=== PATIENT | female | born 1960 | race Caucasian/White ===

== ENCOUNTER 2019-07-13 13:55 | Emergency (ER) | payer MEDICARE, SELFPAY ==
[2019-07-13 13:56] VITALS: BP 179/95; PULSE 97; RESP 18; TEMP 36.9; O2SAT 100; BMI 20.7
--- NOTE | 2019-07-13 14:10 | ED_ITS ---
HPI - Nausea/Vomiting/Diarrhea General: Chief complaint: Nausea/Vomiting/Diarrhea Stated complaint: n/v Time Seen by Provider: 07/13/19 14:10 History of Present Illness: HPI Narrative: Patient is a 59-year-old female who comes to the ED with nausea, vomiting and diarrhea. Patient states that 2 weeks ago the symptoms started 2 weeks ago. She went and saw her PCP last Sunday and she was given a shot of steroids and a shot of Phenergan and that did help with the nausea and vomiting. She states that today she felt very nauseous when she woke up and vomited today and also is having some diarrhea as well. Patient says she has had black tarry stools recently and that she was scheduled for a colonoscopy within the last 2 weeks but the doctor canceled. She has a family history of colon cancer. She does have a history of reflux and takes pantoprazole. Patient states she feels weak due to the nausea vomiting and diarrhea for the past 2 weeks. She denies any fevers or abdominal pain. Denies dysuria or hematuria. Patient states she has not ate or drink much due to the nausea and vomiting these past 2 weeks. Associated nausea: Yes Associated symtoms: Reports fatigue and nausea; Denies change in vision, chest pain, dysuria, headache(s) or palpitations Review of Systems Const: Reports: fatigue; Denies: fever or chills Eyes: Denies: change in vision or eye discomfort ENMT: Denies: throat pain, painful swallowing, nasal discharge or nasal congestion Card: Denies: chest pain, palpitations, edema, swelling of feet/ankles, shortness of breath on exertion or shortness of breath when lying down Resp: Denies: shortness of breath, productive cough or non-productive cough GI: Reports: nausea, vomiting, diarrhea and black tarry stool; Denies: abdominal pain, constipation or blood in stool : Denies: flank pain, painful urination or blood in urine Musc: Denies: neck pain, back pain or extremity swelling Skin/Breast: Denies: rash or new lesion Neuro: Denies: headache, numbness in extremities or weakness in extremities PFS ED PFSH: Medical History Depression Fibromyalgia Insomnia Surgical History H/O sinus surgery History of hip surgery left hip repair History of hysterectomy with BSO Status post colonoscopy Family History Family/Other Cancer son-colon cancer Father Cancer colon Other COPD (chronic obstructive pulmonary disease) Hypertension Denies family history of Anesthesia complication Bleeding disorder Social History Smoking and tobacco status: never smoked Second hand smoke exposure: No Smoking risk assessment/counseling performed?: No Alcohol intake: never Desire information about alcohol rehabilitation?: No Counseling given: No Desire information about substance/drug rehabilitation?: No Counseling given: No Caregiver/support person: No Lives independently: Yes Household members: spouse Marital status: History of recent travel: No Current gender identity: Female Physical Exam Const: COMMON NORMALS: oriented x3 HENMT: COMMON NORMALS: normocephalic HEAD & SCALP: normocephalic MOUTH: oral and palatal mucosa normal THROAT: posterior oropharynx normal and uvula midline Neck/C-Spine: COMMON NORMALS: supple GENERAL: Yes normal visual inspection Resp: COMMON NORMALS: normal respiratory effort, no retractions, no use of accessory muscles and clear to auscultation bilaterally AUSCULTATION: clear to auscultation bilaterally Cardio: COMMON NORMALS: regular rate, regular rhythm, S1 normal heart sound, S2 normal heart sound, no gallops, no clicks, no murmurs and peripheral pulses 2+ throughout RATE: regular rate RHYTHM: regular rhythm HEART SOUNDS: S1 normal and S2 normal PERIPHERAL PULSES: pulses 2+ throughout GI: COMMON NORMALS: normal to inspection, nondistended, normoactive bowel sounds, soft to palpation, non-tender and no masses PALPATION: Yes soft : COMMON NORMALS: Yes no CVA tenderness BLADDER/KIDNEY EXAM: Yes no CVA tenderness Back/Pelvis: COMMON NORMALS: no CVA tenderness Extremity: COMMON NORMALS: normal to inspection and normal capillary refill Neuro: COMMON NORMALS: oriented x3 and moves all extremities Skin: COMMON NORMALS: no rashes or lesions noted GENERAL SKIN EXAM: no rashes or lesions noted and dry skin Course ED course: Patient was treated with IV fluids and Zofran for her nausea vomiting. While on the unit patient symptoms were controlled and she did not vomit or have diarrhea at all while on the unit. Patient states she was feeling better after getting the IV fluids. I discussed with the patient all the findings of the labs and CT were normal. I told patient I will put her on nausea medication to take at home to help with nausea and vomiting. I encouraged her to drink plenty of fluids and she can take Tylenol or ibuprofen if she gets any fever pain. Vital Signs: Vital signs: Vital Signs Temperature 98.4 F 07/13/19 13:56 Pulse Rate 82 07/13/19 17:52 Respiratory Rate 17 07/13/19 17:52 Blood Pressure 173/91 07/13/19 17:52 Pulse Oximetry 97 07/13/19 17:52 MDM - Nausea/Vomiting/Diarrhea Lab Data: Attestation: I reviewed the patient's lab results. Labs: Lab Results 07/13/19 07/13/19 07/13/19 Range/Units 14:17 14:17 15:30 WBC 8.9 (4.0-10.0) 10^3/ uL RBC 4.79 (4.1-5.3) 10^6/u L Hgb 14.7 (11.5-15.3) g/dL Hct 44.6 (37.0-47.0) % MCV 93.1 (81-99) fL MCH 30.7 (28.0-34.0) pg MCHC 33.0 (30.0-36.0) g/dL RDW 12.3 (12.1-15.1) % Plt Count 442 H (130-400) 10^3/c mm MPV 10.0 (7.4-10.4) fL Neut % (Auto) 73.0 % Lymph % (Auto) 16.6 % Grundy % (Auto) 7.6 % Eos % (Auto) 1.6 % Baso % (Auto) 1.0 % Neut # (Auto) 6.5 (1.8-7.7) 10^3/u L Lymph # (Auto) 1.5 (0.8-4.8) 10^3/u L Grundy # (Auto) 0.7 (0.2-0.9) 10^3/u L Eos # (Auto) 0.1 (0.0-0.8) 10^3/u L Baso # (Auto) 0.1 (0.0-0.1) 10^3/u L Nucleated RBC % (a uto) 0 % Nucleated RBCs # 0.0 /100WBC Sodium 143 (136-145) mmol/L Potassium 3.7 (3.5-5.1) mmol/L Chloride 104 (98-107) mmol/L Carbon Dioxide 26 (22-29) mmol/L Anion Gap 16.7 (5-19) BUN 7 L (8-23) mg/dL Creatinine 0.9 (0.5-0.9) mg/dL GFR Calculation 63.7 L (90-130) mL/min Glucose 109 (65-115) mg/dL Calculated Osmolal ity 292 (285-295) mOsm/k g Calcium 10.1 (8.5-10.5) mg/dL Total Bilirubin 0.3 (0.15-1.2) mg/dL AST 23 (0-32) U/L ALT 15 (0-33) U/L Alkaline Phosphata se 89 (35-105) IU/L Total Protein 7.8 (6.6-8.7) g/dL Albumin 4.7 (3.5-5.2) g/dL Globulin 3.1 (1.3-4.6) g/dL Lipase 23 (13-60) U/L Urine Color Yellow (Yellow) Urine Appearance Clear (CLEAR) Urine pH 6 (5-7) Ur Specific Gravit y 1.010 (1.005-1.030) Urine Protein Neg (Negative) Urine Glucose (UA) Norm (Normal) Urine Ketones Negative (Negative) Urine Blood 2+ H (Negative) Urine Nitrate Negative (Negative) Urine Bilirubin Neg (NEGATIVE) Urine Urobilinogen Norm (Negative) mg/dL Ur Leukocyte Lauryn ase Negative (Negative) Urine RBC 0-4 H (0-2) /hpf Urine WBC None (0-5) /hpf Ur Squamous Epith Cells 5-10 H (0-5) Urine Bacteria Trace (NONE) Imaging Data^: CT Abd/Pel: Attestation: I personally reviewed and interpreted this imaging study as follows: Radiologist's impression: [address] [address] [address] Scan Report Signed Patient: Dina Gates [facility] [id number] : 1960 [id number] Age/Sex: 59 / F ADM Date: 07/13/19 Loc: ER Room/Bed: Attending Dr: Ordering Provider/Ordering MD: León Mansfield Date of Service: 07/13/19 Procedure(s): CT abdomen pelvis w con* [id number] Accession Number(s): [id number] Report Number: [id number] PROCEDURE INFORMATION: Exam: CT Abdomen And Pelvis With Contrast Exam date and time: 07/13/2019 3:37 PM Age: 59 years old Clinical indication: Nausea and vomiting; Additional info: Nausea/vomit/diarrhea TECHNIQUE: Imaging protocol: Computed tomography of the abdomen and pelvis with intravenous contrast. Total DLP: 525.82 mGy-cm Radiation optimization: All CT scans at this facility use at least one of these dose optimization techniques: automated exposure control; mA and/or kV adjustment per patient size (includes targeted exams where dose is matched to clinical indication); or iterative reconstruction. Contrast material: OMNI 300; Contrast volume: 95 ml; Contrast route: LT WRIST; COMPARISON: CR Hip 2-3v LEFT wwo Pelv* [id number] 12/19/2017 4:18 PM FINDINGS: Liver: Unremarkable.No mass. Gallbladder and bile ducts: Normal. No calcified stones. No ductal dilation. Pancreas: Normal. No ductal dilation. Spleen: Normal. No splenomegaly. Adrenals: Normal. No mass. Kidneys and ureters: Normal. No hydronephrosis. Stomach and bowel: Unremarkable. No obstruction. No mucosal thickening. There is a small scar upper pole left kidney. Appendix: No evidence of appendicitis. Intraperitoneal space: Unremarkable. No free air. No significant fluid collection. Vasculature: Unremarkable.No abdominal aortic aneurysm. Lymph nodes: Unremarkable.No enlarged lymph nodes. Bladder: Unremarkable as visualized. Reproductive: Unremarkable as visualized. Bones/joints: Unremarkable. No acute fracture. Postoperative changes in the left hip are noted. There is a vacuum disc with moderate to severe degenerative changes in the lower lumbar spine. Soft tissues: Unremarkable. There is an incidental small fat filled umbilical hernia. CT/CT abdomen pelvis w con* [id number] IMPRESSION: No acute findings. No bowel thickening or inflammatory changes. No obstructing calculi or hydronephrosis. Radiation Dose CTDIVOL = (mGy): DLP = 525.82 (mGy-cm) Dictated By: Rita Hall Signed By: Rita Hall Signed Date/Time: 07/13/191623 DD/ 22 Discharge Plan Discharge Patient Disposition: Home, Self-Care Clinical Impression: Nausea & vomiting Qualifiers: Vomiting type: unspecified Vomiting Intractability: non-intractable Qualified Code(s): R11.2 - Nausea with vomiting, unspecified Condition: Stable Prescriptions: New promethazine 12.5 mg tablet 12.5 mg PO TID PRN (Reason: nausea and vomiting) Qty: 20 RF: 0 No Action estradiol 2 mg tablet 2 mg PO DAILY RF: 0 gabapentin 300 mg capsule 300 mg PO QID RF: 0 meloxicam 15 mg tablet 15 mg PO DAILY RF: 0 zolpidem 10 mg tablet 10 mg PO BEDTIME PRN (Reason: Sleep) RF: 0 ibuprofen 800 mg tablet 800 mg PO TID PRN (Reason: Pain) RF: 0 tizanidine 4 mg tablet 4 mg PO TID PRN (Reason: Muscle Spasm) RF: 0 pantoprazole 40 mg tablet,delayed release (DR/EC) 40 mg PO DAILY RF: 0 desvenlafaxine succinate 100 mg tablet extended release 24 hr 100 mg PO DAILY RF: 0 hufcjviqbr-sjjddrhzxdlcf-xdnu 50-325-40 mg tablet 1 tab PO Q4H PRN (Reason: Migraine Headache) RF: 0 alprazolam 0.5 mg tablet 0.5 mg PO QID PRN (Reason: Anxiety) RF: 0 Discharge Orders: Discharge Order (Routine); Ordered 07/13/19 Ordered By: León Mansfield Referrals: Nam Lynch, [employer] [Primary Care Provider] - Discharge Diet: Advance as tolerated Discharge Activity: Increase activity as tolerated Patient Instructions: Acute Nausea and Vomiting (ED) Activity Restrictions/Additional Instructions: Follow-up with your PCP in 5 to 7 days for reevaluation. Take promethazine as prescribed to help with nausea and vomiting. Drink plenty of fluids and stay hydrated. You can also take sizz-rwd-qajoyfp ibuprofen or Tylenol as needed for any pain or fever. Return to the ED if symptoms worsen. Discharge Date/Time: 07/13/19 17:55 Coding Level of Care Code ED Physician Ophthalmologist for Chg Fwd Exam Comprehensive
[2019-07-13 14:27] LABS: Basophils # 0.1 10^3/uL (0.0-0.1); Eosinophils # 0.1 10^3/uL (0.0-0.8); Eosinophils % 1.6 %; Hematocrit 44.6 % (37.0-47.0); Hemoglobin 14.7 g/dL (11.5-15.3); Lymphocytes # 1.5 10^3/uL (0.8-4.8); Lymphocytes % 16.6 %; Mean Corpuscular Hemoglobin 30.7 pg (28.0-34.0); Mean Corpuscular Volume 93.1 fL (81-99); Monocytes # 0.7 10^3/uL (0.2-0.9); Monocytes % 7.6 %; Neutrophils # 6.5 10^3/uL (1.8-7.7); Nucleated Red Blood Cells % 0 %; Platelet Count 442 10^3/cmm (130-400); Red Blood Count 4.79 10^6/uL (4.1-5.3); Red Cell Distribution Width 12.3 % (12.1-15.1); White Blood Count 8.9 10^3/uL (4.0-10.0)
[2019-07-13] MEDS: sodium chloride 0.9% 1,000 ML 999 ML IV (14:27)
[2019-07-13 14:46] LABS: Alanine Aminotransferase 15 U/L (0-33); Albumin Level 4.7 g/dL (3.5-5.2); Alkaline Phosphatase 89 IU/L (35-105); Anion Gap 16.7 (5-19); Aspartate Amino Transferase 23 U/L (0-32); Blood Urea Nitrogen 7 mg/dL (8-23); Calcium 10.1 mg/dL (8.5-10.5); Carbon Dioxide 26 mmol/L (22-29); Chloride 104 mmol/L (98-107); Globulin 3.1 g/dL (1.3-4.6); Glomerular Filtration Rate 63.7 mL/min (90-130); Glucose 109 mg/dL (65-115); Lipase 23 U/L (13-60); Osmolality Calculated 292 mOsm/kg (285-295); Potassium 3.7 mmol/L (3.5-5.1); Sodium 143 mmol/L (136-145); Total Bilirubin 0.3 mg/dL (0.15-1.2); Total Protein 7.8 g/dL (6.6-8.7)
--- NOTE | 2019-07-13 14:48 | CTR_ITS ---
PROCEDURE INFORMATION: Exam: CT Abdomen And Pelvis With Contrast Exam date and time: 07/13/2019 3:37 PM Age: 59 years old Clinical indication: Nausea and vomiting; Additional info: Nausea/vomit/diarrhea TECHNIQUE: Imaging protocol: Computed tomography of the abdomen and pelvis with intravenous contrast. Total DLP: 525.82 mGy-cm Radiation optimization: All CT scans at this facility use at least one of these dose optimization techniques: automated exposure control; mA and/or kV adjustment per patient size (includes targeted exams where dose is matched to clinical indication); or iterative reconstruction. Contrast material: OMNI 300; Contrast volume: 95 ml; Contrast route: LT WRIST; COMPARISON: CR Hip 2-3v LEFT wwo Pelv* [id number] 12/19/2017 4:18 PM FINDINGS: Liver: Unremarkable.No mass. Gallbladder and bile ducts: Normal. No calcified stones. No ductal dilation. Pancreas: Normal. No ductal dilation. Spleen: Normal. No splenomegaly. Adrenals: Normal. No mass. Kidneys and ureters: Normal. No hydronephrosis. Stomach and bowel: Unremarkable. No obstruction. No mucosal thickening. There is a small scar upper pole left kidney. Appendix: No evidence of appendicitis. Intraperitoneal space: Unremarkable. No free air. No significant fluid collection. Vasculature: Unremarkable.No abdominal aortic aneurysm. Lymph nodes: Unremarkable.No enlarged lymph nodes. Bladder: Unremarkable as visualized. Reproductive: Unremarkable as visualized. Bones/joints: Unremarkable. No acute fracture. Postoperative changes in the left hip are noted. There is a vacuum disc with moderate to severe degenerative changes in the lower lumbar spine. Soft tissues: Unremarkable. There is an incidental small fat filled umbilical hernia. CT/CT abdomen pelvis w con* [id number] IMPRESSION: No acute findings. No bowel thickening or inflammatory changes. No obstructing calculi or hydronephrosis. Radiation Dose CTDIVOL = (mGy): DLP = 525.82 (mGy-cm)
[2019-07-13] MEDS: ketorolac 30 mg/mL INJ IVP (15:24)
[2019-07-13] MEDS: iohexol 300 mg/mL 100 mL Btl IV (15:57)
[2019-07-13 16:02] LABS: Bilirubin Urine Neg (NEGATIVE); Blood Urine 2+ (Negative); Glucose Urine UA Norm (Normal); Ketones Urine Negative (Negative); Leukocyte Esterase Urine Negative (Negative); Nitrate Urine Negative (Negative); Protein Urine Neg (Negative); Urine Appearance Clear (CLEAR); Urine Color Yellow (Yellow); Urobilinogen Urine Norm (Negative); pH Urine 6 (5-7)
[2019-07-13 16:09] LABS: Add Urine Culture? No; Bacteria Urine TRACE; RBC Urine 0-4 /hpf (0-2)
[2019-07-13 17:52] VITALS: BP 173/91; PULSE 82; RESP 17; O2SAT 97
== END 2019-07-13 17:55 | disposition home or self-care (01) ==
PROVIDERS: Emergency Provider Physician Assistant; Family Provider Nurse Practitioner; PCP Nurse Practitioner
DX: R11.2 Nausea with vomiting, unspecified (principal)
CPT/HCPCS: 12345; 36415; 74177; 80053; 81001; 83690; 85025; 87040; 96361; 96374; 96375; 99282; 99283; A9270; J1885; J7030; Q9967

== ENCOUNTER 2019-09-30 07:07 | Day surgery (SDC) | payer MEDICARE, SELFPAY ==
[2019-09-26 15:00] VITALS: BMI 19.8
[2019-09-30 07:20] VITALS: BP 117/79; PULSE 88; RESP 20; TEMP 36.8; O2SAT 95
[2019-09-30] MEDS: sodium chloride 0.9% 1,000 ML 30 ML IV (07:28)
--- NOTE | 2019-09-30 07:42 | W.PM.OPSFHP ---
Same Day Surgery H&P Indication for Procedure/HPI DATE OF PROCEDURE: September 30, 2019 CHIEF COMPLAINT/INDICATIONFOR SURGICAL PROCEDURE: Chronic constipation PREOP DIAGNOSIS: Screening colonoscopy PLANNED PROCEDRUE: Operation Date: 09/30/19 08:10 Proposed Procedures p [id number]/Z86.010(Not Applicable) - Sonny Craft MD Medications/Allergies* Home Medications Medication Instructions Recorded Confirmed Type estradiol 2 mg tablet 2 mg PO DAILY 06/12/19 09/30/19 History zolpidem 10 mg tablet 10 mg PO BEDTIME PRN 06/12/19 09/30/19 History alprazolam 0.5 mg PO QID PRN 07/07/19 09/30/19 History desvenlafaxine succinate 100 mg PO DAILY 07/07/19 09/30/19 History ibuprofen 800 mg PO TID PRN 07/07/19 09/26/19 History pantoprazole 40 mg PO DAILY 07/07/19 09/30/19 History Allergies/Adverse Reactions Allergy/AdvReac Type Severity Reaction Status Date / Time No Known Allergies Allergy Verified 09/26/19 14:57 Current Medications: Generic Name Dose Route Start Last Admin Trade Name Freq PRN Reason Stop Dose Admin Sodium Chloride 1,000 mls @ 30 mls/hr 09/30/19 07:30 09/30/19 07:28 Sodium Chloride 0.9% IV 30 mls/hr .Q24H TARA Administration Pertinent History/Comorbid Conditions* Medical History (Updated 07/21/19 @ 00:00 by ) Depression Fibromyalgia Insomnia Surgical History (Updated 06/16/19 @ 15:25 by Sonny Craft MD) H/O sinus surgery History of hip surgery left hip repair History of hysterectomy with BSO Status post colonoscopy Family History (Updated 06/16/19 @ 14:54 by Dayana Vital RN) COPD (chronic obstructive pulmonary disease) Cancer Family/Other son-colon cancer Father colon Hypertension Denies family history of Anesthesia complication Bleeding disorder Social History Smoking and tobacco status: never smoked Second hand smoke exposure: No Smoking risk assessment/counseling performed?: No Alcohol intake: never Desire information about alcohol rehabilitation?: No Counseling given: No Desire information about substance/drug rehabilitation?: No Counseling given: No Caregiver/support person: No Lives independently: Yes Household members: spouse Marital status: History of recent travel: No Current gender identity: Female Pertinent Exam Findings alert, oriented x 3 and regular rate & rhythm Recommendations Surgery/Procedure today Coding Level of Care Code Acute Metal Fabrication Supervisor for Isidro Nathan
--- NOTE | 2019-09-30 07:48 | ANES.PREANE2 ---
Pre-Anesthetic Assessment Pre-Anesthetic Assessment: Height/Weight: Height 1.73 m Weight 58.967 kg Temp Pulse Resp BP Pulse Ox 98.3 F 88 20 H 117/79 95 09/30/19 07:20 09/30/19 07:20 09/30/19 07:20 09/30/19 07:20 09/30/19 07:20 Preop Diagnosis: Screening colonoscopy Proposed Procedure: Operation Date: 09/30/19 08:10 Proposed Procedures p [id number]/Z86.010(Not Applicable) - Sonny Craft MD Last intake: Intake Last Liquid Date 09/29/19 Last Liquid Time 21:00 Last Solid Date 09/28/19 Last Solid Time 18:00 Social: Social History: No alcohol and No tobacco Exam: Pre-Anes Outpt Exam: alert, oriented x 3, clear to auscultation bilaterally and regular rate & rhythm Airway: Submandibular: WNL Cervical ROM: WNL MP: 2 Dentition: Other (poor) History/ROS: No significant history except as noted Pulmonary: Pulmonary: None reported CV/HEM: CV/HEM: None reported : : None reported Hepatic: Hepatic: None reported GI: GI: GERD (controlled) Metabolic: Metabolic: None reported Musc/skel: Musc/skel: None reported Neuropsych: Neuropsych: Anxiety and Depression Anesthetic Plan: ASA status: 2 Anesthesia: Anesthesia Evaluation and MAC Risk of > 500 ml blood loss (7ml/kg in children): No Meds/Allergies Current Medications: Current Medications Generic Name Dose Route Start Last Admin Trade Name Freq PRN Reason Stop Dose Admin Sodium Chloride 1,000 mls @ 30 ml s/hr 09/30/19 07:30 09/30/19 07:28 Sodium Chloride 0.9% IV 30 mls/hr .Q24H TARA Administration PFSH Anesthesia PFSH: Medical History Depression Fibromyalgia Insomnia Surgical History H/O sinus surgery History of hip surgery left hip repair History of hysterectomy with BSO Status post colonoscopy Family History Family/Other Cancer son-colon cancer Father Cancer colon Other COPD (chronic obstructive pulmonary disease) Hypertension Denies family history of Anesthesia complication Bleeding disorder Social History Smoking and tobacco status: never smoked Second hand smoke exposure: No Smoking risk assessment/counseling performed?: No Alcohol intake: never Desire information about alcohol rehabilitation?: No Counseling given: No Desire information about substance/drug rehabilitation?: No Counseling given: No Caregiver/support person: No Lives independently: Yes Household members: spouse Marital status: History of recent travel: No Current gender identity: Female Data Anesthesia Cardiac Studies: No Data to Display
[2019-09-30 08:32] VITALS: BP 108/71; PULSE 75; RESP 16; TEMP 36.6; O2SAT 99
--- NOTE | 2019-09-30 08:36 | ANE.PACU2 ---
Inpatient post-anesthesia follow up: Airway intact: Yes Vital signs: Temperature 98.3 F Pulse Rate 88 Respiratory Rate 20 Blood Pressure 117/79 Pulse Oximetry 95 Oxygen Delivery Me thod Room Air Oxygen Flow Rate Fraction of Inspir ed Oxygen Hydration adequate: Yes Nausea and vomiting: No Pain level: 2 Mental status: Baseline
== END 2019-09-30 09:00 | disposition home or self-care (01) ==
PROVIDERS: PCP Nurse Practitioner; Visit Provider Surgery
PROC: 0DJD8ZZ Inspection of Lower Intestinal Tract, Via Natural or Artificial Opening Endoscopic (ICD-10-PCS; CPT 45378; principal; 2019-09-30 08:00)
DX: K59.09 Other constipation (principal); Z86.010 Personal history of colon polyps; D12.8 Benign neoplasm of rectum; K21.9 Gastro-esophageal reflux disease without esophagitis; M79.7 Fibromyalgia
CPT/HCPCS: 12345; 45378; J7030

== ENCOUNTER 2019-10-17 14:48 | Outpatient (CLI) | payer MEDICARE, SELFPAY ==
--- NOTE | 2019-10-17 15:00 | MM_ITS ---
WS: [id number] BILATERAL DIGITAL SCREENING MAMMOGRAPHY WITH CAD CLINICAL INFORMATION: screen HISTORY: Screening mammogram. No current complaints. COMPARISON: August 20, 2017 TECHNIQUE: Bilateral CC and MLO views. FINDINGS: The breasts are composed of heterogeneous fibroglandular density tissue, which can limit the detectio n of small underlying mass lesions. No suspicious mass, asymmetry, calcifications, or architectural d istortion. No evidence of malignancy. MM/[place] [id number] IMPRESSION: BI-RADS: 1-Negative FOLLOW UP: 1 Year Follow-up Recommend return to annual screening mammography.
== END 2019-10-17 14:49 | disposition home or self-care (01) ==
PROVIDERS: PCP Nurse Practitioner; Visit Provider Nurse Practitioner
DX: Z12.31 Encounter for screening mammogram for malignant neoplasm of breast (principal)
CPT/HCPCS: 77067

== ENCOUNTER → 2020-02-09 14:01 | Outpatient (BNVA) | payer MEDICARE, SELFPAY | PROVIDERS: PCP Nurse Practitioner; Visit Provider Obstetrics & Gynecology | DX: N95.2 Postmenopausal atrophic vaginitis (principal) | CPT/HCPCS: 84450; 87070 ==

== ENCOUNTER → 2020-04-07 14:32 | Outpatient (BNVA) | payer MEDICARE, SELFPAY | PROVIDERS: PCP Nurse Practitioner; Visit Provider Nurse Practitioner Family | DX: Z20.828 Contact with and (suspected) exposure to other viral communicable diseases (principal); J06.9 Acute upper respiratory infection, unspecified | CPT/HCPCS: 87635 ==

== ENCOUNTER 2020-05-17 11:24 | Outpatient (CLI) | payer MEDICARE, SELFPAY ==
--- NOTE | 2020-05-17 11:48 | XR_ITS ---
WS: [id number] HIP WITH PELVIS LEFT TECHNIQUE: 3 views of the left hip with pelvis CLINICAL INFORMATION: LEFT HIP PAIN COMPARISON: December 17, 2017 FINDINGS: Screw fixation left hip is unchanged in appearance. Normal pubic rami. No evidence of screw loosening . XR/XR hip LT 2-3V wo/w pel* [id number] IMPRESSION: Stable postoperative changes screw fixation left hip. No evidence of loosening.
== END 2020-05-17 11:25 | disposition home or self-care (01) ==
PROVIDERS: PCP Nurse Practitioner; Visit Provider Nurse Practitioner Family
DX: M25.552 Pain in left hip (principal)
CPT/HCPCS: 73502

== ENCOUNTER 2020-07-06 11:19 | Outpatient (CLI) | payer MEDICARE, SELFPAY ==
--- NOTE | 2020-07-06 11:35 | XRR_ITS ---
PROCEDURE INFORMATION: Exam: XR Lumbosacral Spine Exam date and time: 07/06/2020 11:39 AM Age: 60 years old Clinical indication: Pain and injury or trauma; Fall; Blunt trauma (contusions or hematomas); Low back pain; Injury date: Couple of months ago; Patient HX: Back pain from hip to hip and proximal femur TECHNIQUE: Imaging protocol: XR of the lumbosacral spine. Views: 2 or 3 views. COMPARISON: CR Lumbar Spine 2-3 views* [id number] 07/18/2018 5:13 PM FINDINGS: Bones/joints: No fracture or other acute abnormalities are seen in the lumbar spine. Chronic degenerative changes are present especially in the lower lumbar facet joints with joint space narrowing sclerosis and hypertrophy. The disc spaces are not significantly narrowed. There is no significant malalignment. Soft tissues: Unremarkable. XR/XR lumbar spine 2-3V* [id number] IMPRESSION: Chronic degenerative changes predominantly in the lower lumbar facet joints.
--- NOTE | 2020-07-06 11:35 | XRR_ITS ---
PROCEDURE INFORMATION: Exam: XR Bilateral Hips Exam date and time: 07/06/2020 11:39 AM Age: 60 years old Clinical indication: Pain and injury or trauma; Blunt trauma (contusions or hematomas); Bilateral; Hip pain; Injury details: Fall a couple of months ago; Patient HX: Back pain from hip to hip and proximal femur; Additional info: Bilateral hip pain TECHNIQUE: Imaging protocol: XR bilateral hips. Views: 2 views of hips with pelvis when performed. COMPARISON: CR XR hip LT 2-3V wo/w pel* [id number] 05/17/2020 11:54 AM FINDINGS: Bones/joints: An orthopedic screws present in the left femoral neck and unchanged in position. No fracture or other acute bony abnormalities are seen. There is stable chronic sclerosis in the right femoral head and superior portion of the right acetabulum. Joint spaces are not significantly narrowed. Chronic degenerative changes are present in the lower lumbar spine with joint space narrowing and sclerosis. Soft tissues: Unremarkable. XR/XR hip BI 3-4V wo/w pel [id number] IMPRESSION: 1. Chronic degenerative changes. 2. No acute bone or joint abnormality.
== END 2020-07-06 11:20 | disposition home or self-care (01) ==
PROVIDERS: PCP Nurse Practitioner; Visit Provider Nurse Practitioner Family
DX: M25.551 Pain in right hip (principal); M25.552 Pain in left hip
CPT/HCPCS: 72100; 73522

== ENCOUNTER 2020-10-01 15:47 | Outpatient (CLI) | payer MEDICARE, SELFPAY ==
--- NOTE | 2020-10-01 16:01 | MR_ITS ---
WS: [id number] INDICATION: Left hip pain TECHNIQUE: MRI of the left femur without gadolinium enhancement. Coronal T1 STIR sagittal STIR sagitt al T1 and axial PD axial T2 FINDINGS: Prior postoperative changes cannulated screw fixation across the left femoral neck. No lebron a in the left femoral neck. Left femoral neck is normal in appearance. No edema. Normal femoral shaft . No acute fractures. Normal visualized soft tissues. Mild serpiginous T1 and T2 signal abnormality involving the RIGHT femoral head consistent with avascu lar necrosis. This is only included on the coronal imaging. Recommend correlation for right hip pain. This can be followed up with right hip MRI or CT. MR/MR lower leg LT wo con* [id number] IMPRESSION: 1. Prior postoperative changes cannulated screw fixation across the LEFT femor al neck. 2. No edema in the LEFT femoral neck and proximal femur. Normal bone marrow si gnal in the femoral shaft. 3. No abnormalities in the LEFT hip. 4. Small amount of serpiginous signal abnormality in the RIGHT femoral head co nsistent with avascular necrosis. Recommend correlation for RIGHT hip pain.
--- NOTE | 2020-10-01 16:45 | MR_ITS ---
WS: [id number] MRI LUMBAR SPINE NONCONTRAST TECHNIQUE: Sagittal T1, T2 and STIR imaging. Axial T1 and T2 imaging. CLINICAL INFORMATION: M54.5 - Low back pain COMPARISON: None. FINDINGS: Mild lumbar curve. No acute compression. No high-grade central canal stenosis. Disc space narrowing w orse L5-S1. L1-L2: Normal. L2-L3: Mild annular bulging. Mild facet arthropathy. Spinal canal and foramen are patent. L3-L4: Mild bulging with slight effacement of the ventral thecal sac. Small right foraminal protrusio n with mild right and no significant left foraminal narrowing. Mild facet arthropathy. L4-L5: Mild annular bulging with mild central canal stenosis. Slight impingement traversing left grea ter than right L5 nerve roots. Moderate facet arthropathy. Mild left and no significant right foramin al narrowing. Moderate facet arthropathy. L5-S1: Mild disc bulging with slight impingement traversing S1 nerve roots bilaterally. Moderate face t arthropathy. Mild bilateral foraminal narrowing. Moderate facet arthropathy. Visualized pelvic bony structures: Normal. Paravertebral soft tissues: Normal. MR/MR lumbar spine wo con* [id number] IMPRESSION: 1. Mild lumbar curve. No acute compression. No high-grade central canal stenos is. 2. Mild annular bulging L4-5 with mild central canal stenosis. Slight impingem ent traversing left greater than right L5 nerve roots. Mild left L4-5 foraminal narrowing. 3. Disc bulging L5-S1 impinges the traversing S1 nerve roots bilaterally. Mild bilateral L5-S1 foraminal narrowing. 4. Small right foraminal protrusion L3-4 slightly contacts the exiting right L 3 nerve root. 5. Moderate facet arthropathy L3-L5.
== END 2020-10-01 15:48 | disposition home or self-care (01) ==
LOC: RADSHAW 15:53
PROVIDERS: PCP Nurse Practitioner; Visit Provider Nurse Practitioner
DX: M79.605 Pain in left leg (principal); M25.552 Pain in left hip; M47.816 Spondylosis without myelopathy or radiculopathy, lumbar region; M51.26 Other intervertebral disc displacement, lumbar region; M51.27 Other intervertebral disc displacement, lumbosacral region; M48.061 Spinal stenosis, lumbar region without neurogenic claudication
CPT/HCPCS: 72148; 73718

== ENCOUNTER → 2020-10-14 14:22 | Outpatient (BNVA) | payer MEDICARE, SELFPAY | PROVIDERS: PCP Nurse Practitioner; Referring Provider Nurse Practitioner; Visit Provider Orthopaedic Surgery | DX: M54.5 Low back pain (principal); M79.605 Pain in left leg; M48.061 Spinal stenosis, lumbar region without neurogenic claudication | CPT/HCPCS: 72110 ==

== ENCOUNTER → 2020-10-19 10:05 | Outpatient (BNVA) | payer MEDICARE, SELFPAY | PROVIDERS: PCP Nurse Practitioner; Referring Provider Orthopaedic Surgery; Visit Provider Anesthesiology Pain Medicine | DX: G89.29 Other chronic pain (principal); M54.5 Low back pain; M79.605 Pain in left leg; M25.552 Pain in left hip; Z79.899 Other long term (current) drug therapy | CPT/HCPCS: 99204 ==

== ENCOUNTER → 2020-10-26 12:24 | Outpatient (BNVA) | payer MEDICARE, SELFPAY | PROVIDERS: PCP Nurse Practitioner; Visit Provider Anesthesiology Pain Medicine | DX: M54.16 Radiculopathy, lumbar region (principal); M79.605 Pain in left leg | CPT/HCPCS: 64483; 64484; J1100; J3490 ==

== ENCOUNTER → 2020-11-09 09:04 | Outpatient (BNVA) | payer MEDICARE, SELFPAY | PROVIDERS: PCP Nurse Practitioner; Visit Provider Anesthesiology Pain Medicine | DX: M47.816 Spondylosis without myelopathy or radiculopathy, lumbar region (principal); M51.16 Intervertebral disc disorders with radiculopathy, lumbar region; M25.552 Pain in left hip; M79.605 Pain in left leg | CPT/HCPCS: 99213; 99214 ==

== ENCOUNTER → 2020-11-22 12:48 | Outpatient (BNVA) | payer MEDICARE, SELFPAY | PROVIDERS: PCP Nurse Practitioner; Visit Provider Anesthesiology Pain Medicine | DX: M47.816 Spondylosis without myelopathy or radiculopathy, lumbar region (principal); M79.605 Pain in left leg | CPT/HCPCS: 64493; 64494; 64495; J3490 ==

== ENCOUNTER → 2020-12-22 09:11 | Outpatient (BNVA) | payer MEDICARE, SELFPAY | PROVIDERS: PCP Nurse Practitioner; Visit Provider Anesthesiology Pain Medicine | DX: M51.16 Intervertebral disc disorders with radiculopathy, lumbar region (principal); M47.816 Spondylosis without myelopathy or radiculopathy, lumbar region; M25.552 Pain in left hip; M79.605 Pain in left leg | CPT/HCPCS: 99213 ==

== ENCOUNTER → 2021-03-17 11:26 | Outpatient (BNVA) | payer MEDICARE, SELFPAY | PROVIDERS: PCP Nurse Practitioner; Visit Provider Anesthesiology Pain Medicine | DX: G89.29 Other chronic pain (principal); M47.816 Spondylosis without myelopathy or radiculopathy, lumbar region; M51.16 Intervertebral disc disorders with radiculopathy, lumbar region; M25.552 Pain in left hip; M79.605 Pain in left leg; M79.7 Fibromyalgia | CPT/HCPCS: 99214 ==

== ENCOUNTER → 2022-01-16 14:49 | Outpatient (BNVA) | payer MEDICARE, SELFPAY | PROVIDERS: PCP Nurse Practitioner; Visit Provider Nurse Practitioner | DX: R53.83 Other fatigue (principal); E55.9 Vitamin D deficiency, unspecified; F41.8 Other specified anxiety disorders; M79.7 Fibromyalgia | CPT/HCPCS: 80053; 80061; 82306; 82607; 84443; 85025 ==

== ENCOUNTER 2022-02-18 09:59 | Emergency (ER) | payer MEDICARE, SELFPAY ==
[2022-02-18] VITALS (7 sets, daily range): BP systolic 106–132; BP diastolic 61–76; PULSE 78–88; RESP 13–23; O2SAT 95–98; BMI 21.1
--- NOTE | 2022-02-18 10:07 | XRR_ITS ---
PROCEDURE INFORMATION: Exam: XR Chest Exam date and time: 02/18/2022 10:55 AM Age: 62 years old Clinical indication: Pain; Chest pressure; Additional info: Chest pain TECHNIQUE: Imaging protocol: Radiologic exam of the chest. Views: 1 view. COMPARISON: CR XR chest 1V [id number] 07/31/2018 12:16 PM FINDINGS: Lungs: No pulmonary vascular congestion, pulmonary edema or pneumonia. Pleural spaces: No pleural effusion or pneumothorax. Heart/Mediastinum: The cardiac silhouette is not enlarged. The mediastinal contours are normal. Bones/joints: No acute osseous abnormality. XR/XR chest 1V portable [id number] IMPRESSION: No acute finding.
--- NOTE | 2022-02-18 10:08 | ECG_ITS ---
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 Measurements Intervals [place] Rate: 87 P: 80 MS: 161 QRS: 77 QRSD: 106 T: 71 QT: 385 QTc: 464 Interpretive Statements SINUS RHYTHM Compared to ECG 07/31/2018 11:31:09 Sinus tachycardia no longer present Electronically Signed On 02-20-2022 23:03:06 CDT by Tracy Satnos M.D. [id number] f
--- NOTE | 2022-02-18 10:14 | ED_ITS ---
HPI - Chest Pain General: Chief Complaint: Chest Pain Stated Complaint: Chest Pain Time Seen by Provider: 02/18/22 10:07 Source: patient Mode of arrival: ambulatory History of Present Illness: 62-year-old female presents emergency room with complaint of chest and back pain. Is difficult to get a lot of history from her she mainly just complains of sudden onset of low back and coccygeal pain. No trauma no previous injury or surgery. Patient evidently had some chest pain yesterday EMS was called they evaluated her and the report was that her heart rate was in the 140s but she refused care and stated home. This morning she had the onset of back pain while at rest and then it began to be accompanied by chest pain. Her main complaint when I came in to see her was her back tailbone pain. She denies any diarrhea no fever sweats chills no vomiting. She has seen pain management in the past for chronic back pain. She also according to her old records is a history of fibromyalgia. Medication list reviewed. MD complaint: chest pain and other (Low back pain, coccygeal pain) Onset (ago): day(s) Timing of current episode: episodic Prior episodes: Yes Onset: during rest Pain location: left chest Pain radiation: back and jaw/teeth Severity: moderate Quality: sharp Relieving factors: nothing Exacerbating factors: nothing Associated symptoms: Reports palpitations; Deny abdominal pain, diaphoresis, dyspnea, fever(s), leg edema, nausea, sense of impending doom, syncope or vomiting Treatment prior to arrival: none Review of Systems Const: Denies: fever(s) or diaphoresis ENMT: Denies: throat pain, ear or mastoid pain, nasal discharge or nasal congestion Card: Reports: chest pain and palpitations; Denies: irregular heart rhythm, edema or syncope Resp: Denies: dyspnea GI: Denies: abdominal pain, nausea or vomiting : Denies: flank pain, difficulty voiding, dysuria, urinary frequency or urinary urgency Musc: Reports: back pain; Denies: extremity pain Skin/Breast: Denies: rash or pruritus PFS ED PFSH: Medical History Depression Fibromyalgia Insomnia Situational anxiety Surgical History H/O sinus surgery History of hip surgery left hip repair History of hysterectomy with BSO Status post colonoscopy (09/30/19) repeat 10 years Family History Family/Other Cancer son-colon cancer Father Cancer colon Other COPD (chronic obstructive pulmonary disease) Hypertension Social History Smoking and tobacco status: never smoked Second hand smoke exposure: No Smoking risk assessment/counseling performed?: No Alcohol intake: never Desire information about alcohol rehabilitation?: No Counseling given: No Desire information about substance/drug rehabilitation?: No Counseling given: No Adopted: No Caregiver/support person: No Lives independently: Yes Household members: spouse Housing: House Marital status: service: No Current occupational status: disabled History of recent travel: No Current gender identity: Female Physical Exam Const: COMMON NORMALS: no acute distress GENERAL APPEARANCE: cooperative and comfortable ORIENTATION/CONSCIOUSNESS: Yes awake, Yes oriented to person, Yes oriented to place and Yes oriented to time HENMT: COMMON NORMALS: normocephalic, atraumatic, hearing grossly normal bilaterally, external ears normal, EAC's normal, TM's normal bilaterally, Normal nasal mucous membranes and turbinates present, moist oral mucous membranes and oropharynx normal HEAD & SCALP: normocephalic and atraumatic NOSE: Normal nasal mucous membranes and turbinates present EXTERNAL EAR: Yes external ears normal EXTERNAL AUDITORY CANAL: EAC's normal TYMPANIC MEMBRANE: TM's normal bilaterally Eye: COMMON NORMALS: Equal, round and reactive pupils present, EOMs intact bilaterally, conjunctivae normal and no scleral icterus CONJUNCTIVA: Yes conjunctivae normal PUPIL: Yes Equal, round and reactive pupils present Neck/C-Spine: COMMON NORMALS: full ROM, no lymphadenopathy, supple and no JVD Lymph: LYMPHATIC: no lymphadenopathy noted and no lymphedema noted Resp: COMMON NORMALS: normal respiratory effort, No retractions, No use of accessory muscles and clear to auscultation bilaterally AUSCULTATION: clear to auscultation bilaterally Cardio: COMMON NORMALS: no JVD, regular rate, regular rhythm and No murmurs present (Cardio) RATE: regular rate RHYTHM: regular rhythm GI: COMMON NORMALS: Soft to palpation and No hepatosplenomegaly present AUSCULTATION: Yes normoactive bowel sounds PALPATION: Yes Soft to palpation, No Tenderness to palpation present (GI), No Guarding due to palpation present (GI) and Yes No hepatosplenomegaly present Extremity: COMMON NORMALS: normal to inspection, capillary refill normal, no clubbing, cyanosis or edema, no calf tenderness and no pedal edema Neuro: SENSORIUM/ORIENTATION: Yes oriented to person, Yes oriented to place and Yes oriented to time Skin: COMMON NORMALS: no rashes or lesions noted GENERAL SKIN EXAM: no rashes or lesions noted Course Vital Signs: Vital signs: Vital Signs Pulse Rate 78 02/18/22 12:00 Respiratory Rate 13 02/18/22 12:00 Blood Pressure 106/76 02/18/22 12:00 Pulse Oximetry 95 02/18/22 10:51 Oxygen Delivery Me thod 02/18/22 10:03 MDM - Chest Pain Medical Decision Making Labs imaging and EKG reviewed. No specific EKG changes cardiac enzymes unremarkable. Her pain is much better she has some chronic changes in her back which look to be old. She has had problems with fibromyalgia and lumbar radiculopathy in the past. We will discharge her home on steroids and set her up for an outpatient Lexiscan sestamibi stress test gave her diclofenac to use as well and ask her to take baby aspirin daily. Medical Records I reviewed the patient's medical records. Lab Data I reviewed the patient's lab results. : 02/18/22 10:29 02/18/22 10:29 Radiology Impressions Chest X-Ray 02/18/22 10:07 IMPRESSION: No acute finding. Lumbar Spine X-Ray 02/18/22 10:20 IMPRESSION: Multilevel degenerative changes. Sacrum and Coccyx X-Ray 02/18/22 10:20 IMPRESSION: No acute osseous abnormality. Laboratory Results WBC 10.3 10^3/uL (4.0-10.0) H 02/18/22 10: RBC 3.84 10^6/uL (4.1-5.3) L 02/18/22 10:29 Hgb 11.9 g/dL (11.5-15.3) 02/18/22 10: Hct 36.8 % (37.0-47.0) L 02/18/22 10: MCV 95.8 fl (81-99) 02/18/22 10: MCH 31.0 pg (28.0-34.0) 02/18/22 10: MCHC 32.3 g/dL (30.0-36.0) 02/18/22 10: RDW 12.7 % (12.1-15.1) 02/18/22 10: Plt Count 343 10^3/cmm (130-400) 02/18/22 10: MPV 10.1 fL (7.4-10.4) 02/18/22 10:29 Neut % (Auto) 72.1 % 02/18/22 10:29 Lymph % (Auto) 15.3 % 02/18/22 10:29 [place] % (Auto) 8.5 % 02/18/22 10:29 Eos % (Auto) 3.4 % 02/18/22 10:29 Baso % (Auto) 0.4 % 02/18/22 10: Neut # (Auto) 7.42 10^3/uL (1.8-7.7) 02/18/22 10:29 Lymph # (Auto) 1.6 10^3/uL (0.8-4.8) 02/18/22 10:29 [place] # (Auto) 0.9 10^3/uL (0.2-0.9) 02/18/22 10:29 Eos # (Auto) 0.4 10^3/uL (0.0-0.8) 02/18/22 10: Baso # (Auto) 0.0 10^3/uL (0.0-0.1) 02/18/22 10:29 Nucleated RBC % (auto) 0 % 02/18/22 10: Nucleated RBCs # 0.0 /100WBC 02/18/22 10:29 Sodium 136 mmol/L (136-145) 02/18/22 10:29 Potassium 3.5 mmol/L (3.5-5.1) 02/18/22 10: Chloride 98 mmol/L (98-107) 02/18/22 10: Carbon Dioxide 31 mmol/L (22-29) H 02/18/22 10:29 Anion Gap 10.5 (5-19) 02/18/22 10:29 BUN 10 mg/dL (8-23) 02/18/22 10:29 Creatinine 0.6 mg/dL (0.5-0.9) 02/18/22 10:29 GFR Calculation 100.6 mL/min (90-130) 02/18/22 10:29 Glucose 93 mg/dL (65-115) 02/18/22 10:29 Calculated Osmolality 281 mOsm/kg (285-295) L 02/18/22 10:29 Calcium 9.4 mg/dL (8.5-10.5) 02/18/22 10:29 Total Bilirubin 0.3 mg/dL (0.15-1.2) 02/18/22 10:29 AST 36 U/L (0-32) H 02/18/22 10:29 ALT 18 U/L (0-33) 02/18/22 10: Alkaline Phosphatase 114 U/L (35-105) H 02/18/22 10:29 Troponin T Baseline 6 ng/L (0-10) 02/18/22 10:29 Troponin T 120 Minute 6.00 ng/L (0-10) 02/18/22 12:19 Delta Troponin T 0 ABS# (0-10) 02/18/22 12:19 Total Protein 6.7 g/dL (6.6-8.7) 02/18/22 10:29 Albumin 3.4 g/dL (3.5-5.2) L 02/18/22 10:29 Globulin 3.3 g/dL (1.3-4.6) 02/18/22 10:29 Discharge Plan Discharge Patient Disposition: Home Clinical Impression: Lumbar disc disease with radiculopathy, Facet arthropathy, lumbar, Atypical chest pain Condition: Stable Prescriptions: New prednisone 20 mg tablet 20 mg PO TID Qty: 15 0RF Rx Instructions: 1 p.o. 3 times daily x3 days, 1 p.o. twice daily x2 days, 1 p.o. daily x2 days aspirin 81 mg tablet,delayed release (DR/EC) 81 mg PO DAILY Qty: 30 0RF diclofenac sodium 75 mg tablet,delayed release (DR/EC) 75 mg PO Q12H PRN (Reason: pain) Qty: 20 0RF No Action estradiol 1 mg tablet 1 mg PO .COMPLEX Qty: 45 12RF Rx Instructions: 1 mg PO Take 1.5 tablet daily to equal 1.5mg daily; estradiol [Yuvafem] 10 mcg tablet 10 mcg VAGINAL .COMPLEX Qty: 8 12RF Rx Instructions: 10 mcg vaginal twice weekly; hydroxyzine pamoate 25 mg capsule 25 mg PO BID PRN (Reason: anxiety) Qty: 60 2RF desvenlafaxine succinate 100 mg tablet extended release 24 hr 150 mg PO DAILY bupropion HCl [Wellbutrin XL] 300 mg tablet extended release 24 hr 300 mg PO QAM quetiapine [Seroquel] 50 mg tablet 100 mg PO .at bedtime tizanidine 4 mg tablet 4 mg PO BID PRN (Reason: Muscle Spasm) Qty: 60 5RF rosuvastatin [Crestor] 10 mg tablet 10 mg PO DAILY Qty: 90 1RF pantoprazole 40 mg tablet,delayed release (DR/EC) 40 mg PO DAILY gabapentin 300 mg capsule 300 mg PO QID PRN (Reason: Pain) Discharge Orders: Discharge ED (Routine); Ordered 02/18/22 Ordered By: Oniel Dias Referrals: Nam Lynch, OTR REFRIGERATED CDL TRUCK DRIVER-C [Primary Care Provider] - Discharge Diet: Usual diet Discharge Activity: Limit activity as instructed Patient Instructions: Opioid Safety, Pain Management Activity Restrictions/Additional Instructions: Avoid exertional activity. Case management make arrangements for an outpatient Lexiscan sestamibi stress test. Follow-up with your primary care doctor within the week. Coding Level of Care Code ED Sheet Metal Installer for Isidro Nathan
--- NOTE | 2022-02-18 10:20 | XRR_ITS ---
PROCEDURE INFORMATION: Exam: XR Lumbosacral Spine Exam date and time: 02/18/2022 10:55 AM Age: 62 years old Clinical indication: Low back pain TECHNIQUE: Imaging protocol: Radiologic exam of the lumbosacral spine. Views: 2 or 3 views. COMPARISON: CR XR lumbar spine min 4V [id number] 10/14/2020 2:32 PM FINDINGS: Bones/joints: The lumbar vertebral bodies maintain height and alignment. The facets align normally. Disc space narrowing and degeneration most prominent at L5-S1 where there is a vacuum disc. Multilevel facet arthropathy in the lower lumbar spine. No acute fracture is appreciated. Soft tissues: No acute soft tissue abnormality. XR/XR lumbar spine 2-3V* [id number] IMPRESSION: Multilevel degenerative changes.
--- NOTE | 2022-02-18 10:20 | XRR_ITS ---
PROCEDURE INFORMATION: Exam: XR Sacrum and Coccyx, 2 or More Views Exam date and time: 02/18/2022 10:55 AM Age: 62 years old Clinical indication: Pain in coccyx area TECHNIQUE: Imaging protocol: XR of the sacrum and coccyx, 2 or more views. COMPARISON: CR XR hip BI 3-4V wo/w pel [id number] 07/06/2020 11:41 AM FINDINGS: Bones/joints: No fracture when allowing for the anatomic variability of the coccyx. The sacral arcuate lines are intact. The sacroiliac joints are not diastatic. Soft tissues: No acute soft tissue abnormality. XR/XR sacrum coccyx min 2V [id number] IMPRESSION: No acute osseous abnormality.
[2022-02-18] MEDS: aspirin 81 mg Chew Tablet 324 MG PO (10:29)
[2022-02-18] MEDS: ondansetron 2 mg/ML SDV 2 mL 4 MG IVP (10:40)
[2022-02-18 10:44] LABS: Basophils % 0.4 %; Eosinophils # 0.4 10^3/uL (0.0-0.8); Eosinophils % 3.4 %; Hematocrit 36.8 % (37.0-47.0); Hemoglobin 11.9 g/dL (11.5-15.3); Lymphocytes # 1.6 10^3/uL (0.8-4.8); Lymphocytes % 15.3 %; Mean Corpuscular HGB Conc 32.3 g/dL (30.0-36.0); Mean Corpuscular Volume 95.8 fl (81-99); Mean Platelet Volume 10.1 fL (7.4-10.4); Monocytes # 0.9 10^3/uL (0.2-0.9); Monocytes % 8.5 %; Neutrophils # 7.42 10^3/uL (1.8-7.7); Neutrophils % 72.1 %; Nucleated Red Blood Cells % 0 %; Platelet Count 343 10^3/cmm (130-400); Red Blood Count 3.84 10^6/uL (4.1-5.3); Red Cell Distribution Width 12.7 % (12.1-15.1); White Blood Count 10.3 10^3/uL (4.0-10.0)
[2022-02-18] MEDS: morphine 4 mg/mL SDV 1 mL IVP (10:45)
[2022-02-18 11:21] LABS: Alanine Aminotransferase 18 U/L (0-33); Albumin Level 3.4 g/dL (3.5-5.2); Alkaline Phosphatase 114 U/L (35-105); Anion Gap 10.5 (5-19); Aspartate Amino Transferase 36 U/L (0-32); Blood Urea Nitrogen 10 mg/dL (8-23); Calcium 9.4 mg/dL (8.5-10.5); Carbon Dioxide 31 mmol/L (22-29); Chloride 98 mmol/L (98-107); Globulin 3.3 g/dL (1.3-4.6); Glomerular Filtration Rate 100.6 mL/min (90-130); Glucose 93 mg/dL (65-115); Osmolality Calculated 281 mOsm/kg (285-295); Potassium 3.5 mmol/L (3.5-5.1); Sodium 136 mmol/L (136-145); Total Bilirubin 0.3 mg/dL (0.15-1.2); Total Protein 6.7 g/dL (6.6-8.7)
[2022-02-18 11:22] LABS: Troponin(5th) Baseline 6 ng/L (0-10)
--- NOTE | 2022-02-18 11:51 | PC.NURSE ---
entered room to round on pt, pt currently sleeping.
--- NOTE | 2022-02-18 12:13 | ECG_ITS ---
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 Measurements Intervals [place] Rate: 75 P: 82 [place]: 166 QRS: 81 QRSD: 105 T: 71 QT: 403 QTc: 451 Interpretive Statements SINUS RHYTHM Compared to ECG 02/18/2022 10:13:26 No significant changes Electronically Signed On 02-20-2022 23:16:10 CDT by Tracy Santos M.D. [id number]
[2022-02-18 13:29] LABS: Troponin 5 2HR Delta 0 ABS# (0-10)
--- NOTE | 2022-02-20 15:12 | DCPLANNER ---
Addendum entered by Octavia Leggett 05/05/22 10:11: Patient had an outpatient stress test scheduled - patient did not attend appointment. Addendum entered by Octavia Leggett 03/23/22 05:42: Patient has a follow up appointment scheduled for Monday, April 25, 2022 at 10:45 for an outpatient stress test. Centralized scheduling will call patient with appointment information. Original Note: health safety and environment manager had message to schedule an outpatient stress test for patient. health safety and environment manager faxed signed order to centralized scheduling, who will call patient with appointment information.
== END 2022-02-18 14:03 | disposition home or self-care (01) ==
PROVIDERS: Emergency Provider Family Medicine; PCP Nurse Practitioner
DX: M54.16 Radiculopathy, lumbar region (principal); M47.896 Other spondylosis, lumbar region; R07.89 Other chest pain
CPT/HCPCS: 36415; 71045; 72100; 72220; 80053; 84484; 85025; 93005; 96374; 96375; 99285; J2270; J2405

== ENCOUNTER → 2022-07-14 15:15 | Outpatient (BNVA) | payer MEDICARE, SELFPAY | PROVIDERS: PCP Nurse Practitioner; Visit Provider Nurse Practitioner Family | DX: S52.021A Displaced fracture of olecranon process without intraarticular extension of right ulna, initial encounter for closed fracture (principal); X58.XXXA Exposure to other specified factors, initial encounter | CPT/HCPCS: 73080 ==

== ENCOUNTER 2023-01-27 02:19 | Inpatient (IN) | payer MEDICARE, MEDICAID, SELFPAY ==
[2023-01-27] VITALS (30 sets, daily range): BP systolic 91–145; BP diastolic 40–77; PULSE 70–90; RESP 14–20; TEMP 36.2–37.4; O2SAT 92–100; BMI 18.2
--- NOTE | 2023-01-27 02:20 | XRR_ITS ---
PROCEDURE INFORMATION: Exam: XR Chest Exam date and time: 01/27/2023 2:23 AM Age: 63 years old Clinical indication: Injury or trauma; Blunt trauma (contusions or hematomas); Injury date: 01/27; Injury details: Fall, RT hip FX TECHNIQUE: Imaging protocol: Radiologic exam of the chest. Views: 1 view. COMPARISON: CR XR chest 1V portable [id number] 02/18/2022 10:55 AM FINDINGS: Lungs: Unremarkable. No consolidation. Pleural spaces: Unremarkable. No pleural effusion. No pneumothorax. Heart/Mediastinum: Unremarkable. No cardiomegaly. Bones/joints: Unremarkable. XR/XR chest 1V portable [id number] IMPRESSION: No acute findings.
--- NOTE | 2023-01-27 02:24 | XRR_ITS ---
PROCEDURE INFORMATION: Exam: XR Right Hip Exam date and time: 01/27/2023 2:27 AM Age: 63 years old Clinical indication: Injury or trauma; Fall; Fracture of pelvis & hip; Right; Traumatic fracture; Articular head of femur; Displaced; Prior surgery; Surgery date: 6+ months; Surgery type: Lt hip TECHNIQUE: Imaging protocol: Radiologic exam of the right hip. Views: 1 view hip with pelvis when performed. COMPARISON: CR XR hip BI 3-4V wo/w pel [id number] 07/06/2020 11:41 AM FINDINGS: Bones/joints: Previous left hip pinning. Chronic right femoral head AVN. Mildly to moderately displaced right femoral neck fracture. This appears to be subcapital. No femoral head dislocation. Moderate right hip DJD. Soft tissues: Unremarkable. XR/XR hip RT 2-3V wo/w pel* [id number] IMPRESSION: Right hip acute surgical fracture.
--- NOTE | 2023-01-27 02:33 | W.ED.FALL ---
HPI - Fall General: Chief Complaint: Fall Stated Complaint: fall, hip/thigh pain Time Seen by Provider: 01/27/23 02:20 Source: patient and EMS Mode of arrival: EMS Limitations: no limitations History of Present Illness: 63-year-old female states that she had tripped and fell at home landed on her right hip she has right hip pain she rates an 8 out of 10 denies any other injuries denies hitting her head. She denies any chest or abdominal pain. Associated symptoms-after fall: Denies abdominal pain, chest pain, headache(s) or neck pain Review of Systems Const: Denies: fever(s) or chills ENMT: Denies: throat pain or dental pain Card: Denies: chest pain Resp: Denies: dyspnea GI: Denies: abdominal pain, nausea, vomiting or diarrhea Musc: Reports: extremity pain; Denies: neck pain or back pain Skin/Breast: Denies: rash Neuro: Denies: headache(s) PFSH ED PFSH: Medical History Depression Fibromyalgia Insomnia Situational anxiety Surgical History H/O sinus surgery History of hip surgery left hip repair History of hysterectomy with BSO Status post colonoscopy (09/30/19) repeat 10 years Family History Family/Other Cancer son-colon cancer Father Cancer colon Other COPD (chronic obstructive pulmonary disease) Hypertension Social History Smoking and tobacco status: never smoked Second hand smoke exposure: No Smoking risk assessment/counseling performed?: No Alcohol intake: never Desire information about alcohol rehabilitation?: No Counseling given: No Substance/Drug Use: never Desire information about substance/drug rehabilitation?: No Counseling given: No Adopted: No Caregiver/support person: No Lives independently: Yes Household members: spouse Housing: House Marital status: service: No Current occupational status: disabled Do you think of yourself as: Straight/Heterosexual Current gender identity: Female Course Vital Signs: Vital signs: Vital Signs Temperature 98.2 F 01/27/23 02:21 Pulse Rate 81 01/27/23 02:21 Respiratory Rate 16 01/27/23 02:38 Blood Pressure 123/62 01/27/23 02:21 Pulse Oximetry 100 01/27/23 02:38 MDM - Fall Medical Decision Making Patient presents here with right hip fracture from a fall spoke to hospital orthopedic and will admit. Medical Records I reviewed the patient's medical records. Lab Data I reviewed the patient's lab results. 01/27/23 02:37 01/27/23 02:37 Laboratory Results WBC 9.11 10^3/uL (3.29-11.43) 01/27/23 02:37 RBC 4.00 10^6/uL (3.85-5.65) 01/27/23 02:37 Hgb 11.80 g/dL (11.27-16.99) 01/27/23 02:37 Hct 37.1 % (36-47) 01/27/23 02:37 MCV 92.8 fl (85-98) 01/27/23 02:37 MCH 29.5 pg (27-33) 01/27/23 02:37 MCHC 31.8 g/dL (30-55) 01/27/23 02:37 RDW 13.1 % (12.1-15.1) 01/27/23 02:37 Plt Count 355 10^3/cmm (157-399) 01/27/23 02:37 MPV 9.5 fL (7.4-10.4) 01/27/23 02:37 Neut % (Auto) 65.6 % 01/27/23 02:37 Lymph % (Auto) 20.9 % 01/27/23 02:37 [place] % (Auto) 8.1 % 01/27/23 02:37 Eos % (Auto) 4.3 % 01/27/23 02:37 Baso % (Auto) 0.8 % 01/27/23 02:37 Neut # (Auto) 5.98 10^3/uL (1.8-7.7) 01/27/23 02:37 Lymph # (Auto) 1.9 10^3/uL (0.8-4.8) 01/27/23 02:37 [place] # (Auto) 0.7 10^3/uL (0.2-0.9) 01/27/23 02:37 Eos # (Auto) 0.4 10^3/uL (0.0-0.8) 01/27/23 02:37 Baso # (Auto) 0.1 10^3/uL (0.0-0.1) 01/27/23 02:37 Nucleated RBC % (auto) 0 % 01/27/23 02:37 Nucleated RBCs # 0.0 /100WBC 01/27/23 02:37 XR interpretation done by ED provider, pending radiology final review ED provider radiology interpretation(s): xr right hip: right hip fx Discharge Plan Discharge Condition: Stable Prescriptions: No Action estradiol 1 mg tablet 1 mg PO .COMPLEX Qty: 45 12RF Rx Instructions: 1 mg PO Take 1.5 tablet daily to equal 1.5mg daily; estradiol [Yuvafem] 10 mcg tablet 10 mcg VAGINAL .COMPLEX Qty: 8 12RF Rx Instructions: 10 mcg vaginal twice weekly; hydroxyzine pamoate 25 mg capsule 25 mg PO BID PRN (Reason: anxiety) Qty: 60 2RF desvenlafaxine succinate 100 mg tablet extended release 24 hr 150 mg PO DAILY bupropion HCl [Wellbutrin XL] 300 mg tablet extended release 24 hr 300 mg PO QAM quetiapine [Seroquel] 50 mg tablet 100 mg PO .at bedtime tizanidine 4 mg tablet 4 mg PO BID PRN (Reason: Muscle Spasm) Qty: 60 5RF rosuvastatin [Crestor] 10 mg tablet 10 mg PO DAILY Qty: 90 1RF [place] 145 mcg capsule 145 mcg PO QAM Qty: 30 0RF pantoprazole 40 mg tablet,delayed release (DR/EC) 40 mg PO DAILY gabapentin 300 mg capsule 300 mg PO QID PRN (Reason: Pain) aspirin 81 mg tablet,delayed release (DR/EC) 81 mg PO DAILY Qty: 30 0RF diclofenac sodium 75 mg tablet,delayed release (DR/EC) 75 mg PO Q12H PRN (Reason: pain) Qty: 20 0RF Coding Level of Care Code ED Hand Tool Lapper for Isidro Nathan
[2023-01-27] MEDS: ondansetron 2 mg/ML SDV 2 mL 4 MG IVP (02:37)
[2023-01-27] MEDS: HYDROmorphone 1 mg/mL INJ 1 mL IVP ×4 (02:38→13:46)
[2023-01-27 02:46] LABS: Basophils # 0.1 10^3/uL (0.0-0.1); Basophils % 0.8 %; Eosinophils # 0.4 10^3/uL (0.0-0.8); Eosinophils % 4.3 %; Hematocrit 37.1 % (36-47); Lymphocytes # 1.9 10^3/uL (0.8-4.8); Lymphocytes % 20.9 %; Mean Corpuscular HGB Conc 31.8 g/dL (30-55); Mean Corpuscular Hemoglobin 29.5 pg (27-33); Mean Corpuscular Volume 92.8 fl (85-98); Mean Platelet Volume 9.5 fL (7.4-10.4); Monocytes # 0.7 10^3/uL (0.2-0.9); Monocytes % 8.1 %; Neutrophils # 5.98 10^3/uL (1.8-7.7); Neutrophils % 65.6 %; Nucleated Red Blood Cells % 0 %; Platelet Count 355 10^3/cmm (157-399); Red Cell Distribution Width 13.1 % (12.1-15.1); White Blood Count 9.11 10^3/uL (3.29-11.43)
--- NOTE | 2023-01-27 02:55 | ECG_ITS ---
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 Measurements Intervals [place] Rate: 77 P: 76 [place]: 164 QRS: 84 QRSD: 114 T: 72 QT: 414 QTc: 471 Interpretive Statements SINUS RHYTHM MODERATE INTRAVENTRICULAR CONDUCTION DELAY [110+ ms QRS DURATION] Compared to ECG 02/18/2022 12:13:05 Intraventricular conduction delay now present Electronically Signed On 01-27-2023 9:37:02 CDT by Roman Mckoy M.D. [id number]
[2023-01-27 03:01] LABS: INR 0.91 (0.8-1.2)
[2023-01-27 03:09] LABS: Alanine Aminotransferase 10 U/L (0-33); Albumin Level 4.2 g/dL (3.5-5.2); Alkaline Phosphatase 130 U/L (35-105); Anion Gap 12.8 (5-19); Aspartate Amino Transferase 24 U/L (0-32); Blood Urea Nitrogen 10 mg/dL (8-23); Carbon Dioxide 31 mmol/L (22-29); Chloride 100 mmol/L (98-107); Globulin 2.7 g/dL (1.3-4.6); Glomerular Filtration Rate 55.6 mL/min (90-130); Glucose 103 mg/dL (65-115); Osmolality Calculated 289 mOsm/kg (285-295); Potassium 3.8 mmol/L (3.5-5.1); Sodium 140 mmol/L (136-145); Total Bilirubin 0.2 mg/dL (0.15-1.2); Total Protein 6.9 g/dL (6.6-8.7)
[2023-01-27] MEDS: HYDROmorphone 1 mg/mL INJ 1 mL 0.5 MG IVP (04:10)
[2023-01-27] MEDS: pantoprazole 40 mg SDV IVP (04:10)
[2023-01-27] MEDS: dextrose 5%-sod chloride 0.9% 1,000 ML 100 ML IV ×2 (04:10→17:21)
--- NOTE | 2023-01-27 04:11 | PM.HP ---
Providers/Chief Complaint Admitting Physician: Bladimir Gonzalez MD Primary Care Provider: Angie Mcgovern APN Chief Complaint: fall, hip/thigh pain History of Present Illness Dina Gates is a 63 year old female with a past medical history of anxiety, hyperlipidemia, insomnia, on chronic estrogen therapy, who presents to [facility] for a fall. Patient tells me that she wrapped up in her throw blanket, which she was was trying to unwrap herself, she fell out of bed, fell on her right hip, had severe right hip pain, no head trauma, no loss of consciousness, no preceding chest pain or palpitations or shortness of breath, emergency room she was diagnosed with a right hip fracture Review of Systems Const: Denies: fever(s) Card: Denies: chest pain Resp: Denies: dyspnea GI: Denies: abdominal pain : Denies: difficulty voiding or dysuria Musc: Reports: joint pain; Denies: back pain Neuro: Denies: headache(s) Medications/Allergies Home Medications Medication Instructions Recorded Confirmed Last Taken Type pantoprazole 40 mg tablet,delayed 40 mg PO DAILY 07/07/19 07/14/22 09/29/19 History release gabapentin 300 mg capsule 300 mg PO QID PRN Pain 09/30/19 07/14/22 Unknown History estradiol 10 mcg vaginal tablet 10 mcg vaginal .COMPLEX #8 tabs 02/09/20 07/14/22 Unknown Rx (Yuvafem) estradiol 1 mg tablet 1 mg PO .COMPLEX #45 tabs 03/29/20 07/14/22 Unknown Rx desvenlafaxine succinate 100 mg 150 mg PO DAILY 12/09/20 07/14/22 Unknown History tablet,extended release 24 hr hydroxyzine pamoate 25 mg capsule 25 mg PO BID PRN anxiety #60 caps 12/09/20 07/14/22 Unknown Rx bupropion HCl 300 mg 24 hr tablet, 300 mg PO QAM 01/16/22 07/14/22 Unknown History extended release (Wellbutrin XL) quetiapine 50 mg tablet (Seroquel) 100 mg PO .at bedtime 01/16/22 07/14/22 Unknown History tizanidine 4 mg tablet 4 mg PO BID PRN Muscle Spasm #60 01/16/22 07/14/22 Unknown Rx tabs rosuvastatin 10 mg tablet (Crestor) 10 mg PO DAILY #90 tabs 01/29/22 07/14/22 Unknown Rx aspirin 81 mg tablet,delayed 81 mg PO DAILY #30 tabs 02/18/22 07/14/22 Unknown Rx release diclofenac sodium 75 mg 75 mg PO Q12H PRN pain #20 tabs 02/18/22 07/14/22 Unknown Rx tablet,delayed release linaclotide 145 mcg capsule 145 mcg PO QAM #30 caps 04/27/22 07/14/22 Unknown Rx (Linzess) Allergies Allergy/AdvReac Type Severity Reaction Status Date / Time estrogens, conjugated Allergy rash Verified 02/28/22 20:50 [From Premarin] PFSH Acute PFSH: Medical History Depression Fibromyalgia Insomnia Situational anxiety Surgical History H/O sinus surgery History of hip surgery left hip repair History of hysterectomy with BSO Status post colonoscopy (09/30/19) repeat 10 years Family History Family/Other Cancer son-colon cancer Father Cancer colon Other COPD (chronic obstructive pulmonary disease) Hypertension Social History Smoking and tobacco status: never smoked Second hand smoke exposure: No Smoking risk assessment/counseling performed?: No Alcohol intake: never Desire information about alcohol rehabilitation?: No Counseling given: No Substance/Drug Use: never Desire information about substance/drug rehabilitation?: No Counseling given: No Adopted: No Caregiver/support person: No Lives independently: Yes Household members: spouse Housing: House Marital status: service: No Current occupational status: disabled Do you think of yourself as: Straight/Heterosexual Current gender identity: Female Vitals/I&O/Wt Last Vital Signs Temp 98.2 F 01/27/23 02:21 Pulse 87 01/27/23 03:26 Resp 16 01/27/23 04:10 BP 100/72 01/27/23 03:26 Pulse Ox 100 01/27/23 03:26 O2 Del Method Room Air 01/27/23 03:22 Weight last 48 hrs Weight 54.431 kg Physical Exam Const: COMMON NORMALS: no acute distress and patient oriented x3 HENMT: COMMON NORMALS: normocephalic HEAD & SCALP: normocephalic Eye: COMMON NORMALS: Equal, round and reactive pupils present Neck/C-Spine: COMMON NORMALS: full ROM and no lymphadenopathy Resp: COMMON NORMALS: normal respiratory effort, No retractions, No use of accessory muscles and clear to auscultation bilaterally AUSCULTATION: clear to auscultation bilaterally Cardio: COMMON NORMALS: regular rate, regular rhythm, S1 normal heart sound present and S2 normal heart sound present RATE: regular rate RHYTHM: regular rhythm HEART SOUNDS: S1 normal heart sound present and S2 normal heart sound present GI: COMMON NORMALS: Normal to inspection, nondistended, normoactive bowel sounds present, Soft to palpation and non-tender Back/Pelvis: OTHER: Severe right hip pain Extremity: COMMON NORMALS: no pedal edema Neuro: COMMON NORMALS: patient oriented x3, CN's II-XII intact bilaterally and moves all extremities Psych: COMMON NORMALS: mental status grossly normal Data 01/27/23 02:37 01/27/23 02:37 A&P Assessment and plan (1) Closed fracture of right hip: (2) Fall at home: (3) Hyperlipidemia, mixed: Plan Right hip fracture -Obtain UA -Creatinine 1.0 IV fluids -TSH -IV fluids -Dilaudid 1 mg IV push every 4 hours as needed for pain -Zofran for nausea -Orthopedic service has been consulted -Keep n.p.o. -Full code -SCDs for DVT prophylaxis Attestations Medical Necessity Statement*: Patient requires hospitalization, inpatient, greater than 2 midnights, for right hip fracture Diagnoses Closed fracture of right hip S72.001A Fall at home W19.XXXA; Y92.009 Hyperlipidemia, mixed E78.2
[2023-01-27 04:14] LABS: Thyroid Stimulating Hormone 6.62 uIU/mL (0.27-4.20)
--- NOTE | 2023-01-27 07:05 | PC.NURSE ---
patient taken off unit to surgery.
--- NOTE | 2023-01-27 07:19 | P.CONIM_ITS ---
Providers/Reason For Consult Consulting Physician/Specialty*: Orthopedics Reason for Consult*: Right hip pain Attending Physician: Vern Ayala MD Primary Care Provider: Angie Mcgovern APN History of Present Illness History of Present Illness Dina Gates is a 63 year old female who fell at her residence on her way to the bedroom. She was transported to the emergency room where x-rays confirmed a right hip fracture. She was admitted orthopedics was consulted for definitive management. She was evaluated in room 263 with continued right hip pain. She states that the pain has been sharp stabbing constant in nature any movement of the right leg makes her pain much worse. She denied any chest pain shortness of breath. She states she tripped and fell in the same spot where she sustained injury to her right elbow as well. She denies any neck or back pain denies any loss of conscious in the fall. Ranks the pain as 7 out of 10 on the pain scale rest gives her some temporary relief. Review of Systems Const: Denies: fever(s) Card: Denies: chest pain Resp: Denies: dyspnea GI: Denies: abdominal pain : Denies: difficulty voiding or dysuria Musc: Reports: joint pain; Denies: back pain Neuro: Denies: headache(s) Medications/Allergies Home Medications Medication Instructions Recorded Confirmed Last Taken Type gabapentin 300 mg capsule 300 mg PO QID PRN Pain 09/30/19 01/27/23 Unknown History estradiol 1 mg tablet 1 mg PO .COMPLEX #45 tabs 03/29/20 01/27/23 01/26/23 Rx desvenlafaxine succinate 100 mg 150 mg PO DAILY 12/09/20 01/27/23 01/26/23 History tablet,extended release 24 hr quetiapine 50 mg tablet (Seroquel) 100 mg PO .at bedtime 01/16/22 01/27/23 01/26/23 History diclofenac sodium 75 mg 75 mg PO Q12H PRN pain #20 tabs 02/18/22 01/27/23 01/26/23 Rx tablet,delayed release alprazolam 0.5 mg tablet 0.25 - 0.5 mg PO BID PRN Anxiety 01/27/23 01/27/23 01/26/23 History bupropion HCl 150 mg 24 hr tablet, 150 mg PO QAM 01/27/23 01/27/2301/26/23 History extended release eszopiclone 3 mg tablet 3 mg PO QPM 01/27/23 01/27/23 01/26/23 History levothyroxine 75 mcg tablet 75 mcg PO DAILY 01/27/23 01/27/23 01/26/23 History Allergies Allergy/AdvReac Type Severity Reaction Status Date / Time estrogens, conjugated Allergy rash Verified 02/28/22 20:50 [From Premarin] Current Medications Generic Name Dose Route Start Last Admin Trade Name Freq PRN Reason Stop Dose Admin Hydromorphone HCl 1 mg 01/27/23 03:30 01/27/23 03:43 Hydromorphone 1 Mg/Ml Inj 1 Ml IVP 1 mg Q4H PRN Administration PAIN Dextrose/Sodium Chloride 1,000 mls @ 100 mls/hr 01/27/23 03:45 01/27/23 04:10 Dextrose 5%-Sod Chloride 0.9% IV 100 mls/hr .Q10H TARA Administration Pantoprazole Sodium 40 mg 01/27/23 03:45 01/27/23 04:10 Pantoprazole 40 Mg Sdv IVP 40 mg Q24H TARA Administration PFSH Acute PFSH: Medical History Depression Fibromyalgia Insomnia Situational anxiety Surgical History H/O sinus surgery History of hip surgery left hip repair History of hysterectomy with BSO Status post colonoscopy (09/30/19) repeat 10 years Family History Family/Other Cancer son-colon cancer Father Cancer colon Other COPD (chronic obstructive pulmonary disease) Hypertension Social History Smoking and tobacco status: never smoked Second hand smoke exposure: No Smoking risk assessment/counseling performed?: No Alcohol intake: never Desire information about alcohol rehabilitation?: No Counseling given: No Substance/Drug Use: never Desire information about substance/drug rehabilitation?: No Counseling given: No Adopted: No Caregiver/support person: No Lives independently: Yes Household members: spouse Housing: House Marital status: service: No Current occupational status: disabled Do you think of yourself as: Straight/Heterosexual Current gender identity: Female Vitals/I&O/Wt Last Vital Signs Temp 99.3 F 01/27/23 07:08 Pulse 90 01/27/23 07:08 Resp 18 01/27/23 07:08 BP 145/77 01/27/23 07:08 Pulse Ox 92 01/27/23 07:08 O2 Del Method Room Air 01/27/23 04:23 Weight last 48 hrs Weight 120 lb Physical Exam Narrative: She is alert and orient x3 she has good general appearance normal mood and affe ct. Mild acute distress. Tender with palpation over the right hip with positive logroll. She wiggles her toes with normal sensation light touch down both lower extremities. She can dorsiflex and plantarflex. Her dorsalis pedis and posterior tibial pulses are palpable calves are supple. Good cap refill all digits HENMT: COMMON NORMALS: normocephalic and atraumatic HEAD & SCALP: normocephalic and atraumatic Resp: COMMON NORMALS: normal respiratory effort Cardio: COMMON NORMALS: regular rate and regular rhythm RATE: regular rate RHYTHM: regular rhythm GI: COMMON NORMALS: non-tender : COMMON NORMALS: Yes no CVA tenderness BLADDER/KIDNEY EXAM: Yes no CVA tenderness Back/Pelvis: COMMON NORMALS: no CVA tenderness Psych: COMMON NORMALS: cooperative Data 01/28/23 04:16 01/28/23 04:16 A&P Assessment and plan (1) Displaced fracture of right femoral neck: Discussed with the patient did proceed with a right hip hemiarthroplasty. Discussed the risks and benefits of the seizures could limited to bleeding infection nerve damage continued hip pain need for surgery asked anesthesia. Patient wished to proceed. More than 50% of the time spent with the patient today involved coordination of care, counseling and discussion of conservative versus surgical treatment options. Total amount of time spent with the patient was 32 minutes. Coding Level of Care Code Acute Code for Chg Fwd Diagnoses Displaced fracture of right femoral neck S72.001A Time Spent (min) 32
[2023-01-27] MEDS: sodium chloride 0.9% 1,000 ML 30 ML IV (07:30)
[2023-01-27] MEDS: ceFAZolin 2,000 MG in sodium chloride 0.9% (plus) 50 ML 100 MG IV ×2 (08:00→15:10)
--- NOTE | 2023-01-27 08:01 | W.PM.OPSUD ---
Surgery/Procedure H&P Update DATE OF PROCEDURE: January 27, 2023 DATE H&P PERFORMED: 01/27/23 H&P UPDATE INFORMATION: I have reviewed H&P completed within last 30 days, I have examined patient prior to procedure and No changes to prior documentation PREOP DIAGNOSIS: Right displaced femoral neck fracture PLANNED PROCEDURE: Operation Date: 01/27/23 08:30 Proposed Procedures p Open Reduction Hip(Right) - Los Gillespie DO
--- NOTE | 2023-01-27 08:29 | ANES.PREANE2 ---
Pre-Anesthetic Assessment Height/Weight: Height 1.73 m Weight 54.431 kg Temp Pulse Resp BP Pulse Ox O2 Del Method 99.3 F 90 18 145/77 92 Room Air 01/27/23 07:08 01/27/23 07:08 01/27/23 07:08 01/27/23 07:08 01/27/23 07:08 01/27/23 04:23 Preop Diagnosis: Right displaced femoral neck fracture Operation Date: 01/27/23 08:30 Proposed Procedures p Open Reduction Hip(Right) - Los Gillespie DO Familial anesthetic complications: none Was Beta Elliott taken within 24 hours: N/A Was Clonidine taken within 24 hours: N/A Last intake: Intake Last Liquid Date 01/26/23 Last Liquid Time 22:00 Last Solid Date 01/26/23 Last Solid Time 10:00 Social No alcohol and No tobacco Exam alert, oriented x 3, clear to auscultation bilaterally and regular rate & rhythm Airway Submandibular: within normal limits Cervical ROM: within normal limits Mallampati: Class II Dentition: caps GI Gastroesophageal Reflux Disease Metabolic Hyper[place] [facility] [place] Lower Back Pain and Osteoarthritis/DJD Neuropsych Anxiety and Depression Anesthetic Plan ASA status: 2 Anesthesia: Regional (specify below) (SAB) Medications/Allergies Home Medications Medication Instructions Recorded Confirmed Last Taken Type pantoprazole 40 mg tablet,delayed 40 mg PO DAILY 07/07/19 07/14/22 09/29/19 History release gabapentin 300 mg capsule 300 mg PO QID PRN Pain 09/30/19 07/14/22 Unknown History estradiol 10 mcg vaginal tablet 10 mcg vaginal .COMPLEX #8 tabs 02/09/20 07/14/22 Unknown Rx (Yuvafem) estradiol 1 mg tablet 1 mg PO .COMPLEX #45 tabs 03/29/20 07/14/22 Unknown Rx desvenlafaxine succinate 100 mg 150 mg PO DAILY 12/09/20 07/14/22 Unknown History tablet,extended release 24 hr hydroxyzine pamoate 25 mg capsule 25 mg PO BID PRN anxiety #60 caps 12/09/20 07/14/22 Unknown Rx bupropion HCl 300 mg 24 hr tablet, 300 mg PO QAM 01/16/22 07/14/22 Unknown History extended release (Wellbutrin XL) quetiapine 50 mg tablet (Seroquel) 100 mg PO .at bedtime 01/16/22 07/14/22 Unknown History tizanidine 4 mg tablet 4 mg PO BID PRN Muscle Spasm #60 01/16/22 07/14/22 Unknown Rx tabs rosuvastatin 10 mg tablet (Crestor) 10 mg PO DAILY #90 tabs 01/29/22 07/14/22 Unknown Rx aspirin 81 mg tablet,delayed 81 mg PO DAILY #30 tabs 02/18/22 07/14/22 Unknown Rx release diclofenac sodium 75 mg 75 mg PO Q12H PRN pain #20 tabs 02/18/22 07/14/22 Unknown Rx tablet,delayed release linaclotide 145 mcg capsule 145 mcg PO QAM #30 caps 04/27/22 07/14/22 Unknown Rx (Linzess) Allergies Allergy/AdvReac Type Severity Reaction Status Date / Time estrogens, conjugated Allergy rash Verified 02/28/22 20:50 [From Premarin] Current Medications Generic Name Dose Route Start Last Admin Trade Name Freq PRN Reason Stop Dose Admin Hydromorphone HCl 1 mg 01/27/23 03:30 01/27/23 03:43 Hydromorphone 1 Mg/Ml Inj 1 Ml IVP 1 mg Q4H PRN Administration PAIN Dextrose/Sodium Chloride 1,000 mls @ 100 mls/hr 01/27/23 03:45 01/27/23 04:10 Dextrose 5%-Sod Chloride 0.9% IV 100 mls/hr .Q10H TARA Administration Pantoprazole Sodium 40 mg 01/27/23 03:45 01/27/23 04:10 Pantoprazole 40 Mg Sdv IVP 40 mg Q24H TARA Administration PFSH Anesthesia Medical History Depression Fibromyalgia Insomnia Situational anxiety Surgical History H/O sinus surgery History of hip surgery left hip repair History of hysterectomy with BSO Status post colonoscopy (09/30/19) repeat 10 years Family History Family/Other Cancer son-colon cancer Father Cancer colon Other COPD (chronic obstructive pulmonary disease) Hypertension Social History Smoking and tobacco status: never smoked Second hand smoke exposure: No Smoking risk assessment/counseling performed?: No Alcohol intake: never Desire information about alcohol rehabilitation?: No Counseling given: No Substance/Drug Use: never Desire information about substance/drug rehabilitation?: No Counseling given: No Adopted: No Caregiver/support person: No Lives independently: Yes Household members: spouse Housing: House Marital status: service: No Current occupational status: disabled Do you think of yourself as: Straight/Heterosexual Current gender identity: Female Data Anesthesia 01/27/23 02:37 01/27/23 02:37 Short CBC 01/27/23 Range/Units 02:37 WBC 9.11 (3.29-11.43) 10^3/uL Hgb 11.80 (11.27-16.99) g/dL Hct 37.1 (36-47) % MCV 92.8 (85-98) fl Plt Count 355 (157-399) 10^3/cmm Neut % (Auto) 65.6 % Neut # (Auto) 5.98 (1.8-7.7) 10^3/uL BMP 01/27/23 02:37 Sodium 140 Potassium 3.8 Chloride 100 Carbon Dioxide 31 H BUN 10 Creatinine 1.0 H Glucose 103 Calcium 9.0 Liver Function 01/27/23 Range/Units 02:37 Total Bilirubin 0.2 (0.15-1.2) mg/dL AST 24 (0-32) U/L ALT 10 (0-33) U/L Alkaline Phosphatase 130 H (35-105) U/L Albumin 4.2 (3.5-5.2) g/dL Coags 01/27/23 02:37 PT 12.60 INR 0.91 Cardiac Studies: No Data to Display
--- NOTE | 2023-01-27 08:29 | PM.MISC ---
Miscellaneous Note Note: Patient will for surgical intervention by Dr. Gillespie Patient is full code N.p.o. for now CBC is normal, BMP is normal as well TSH is 6.6 check free T4 We will request DVT prophylaxis diet and PT after her surgical intervention
--- NOTE | 2023-01-27 08:59 | PM.OP ---
Operative Report Date of procedure: January 27, 2023 Pre-op diagnosis: Right femoral neck fracture Post-op diagnosis: same Procedure done: Right hip hemiarthroplasty Surgeon: Los Gillespie DO Environmental Services Assistant: Serafin Quiñonez Environmental Services Assistant: The cardiovascular surgical tech, TANNER Thomas was needed for his expertise under the microscope. He was important and necessary throughout the procedure to complete in a safe and timely manner. He assisted with patient positioning prepping and draping tissue retraction suctioning of the operative field protection of the dural sac and tissue closure Estimated blood loss (mL): 25 Procedure: Right hip hemiarthroplasty Patient was brought to the operative suite after undergoing anesthesia with a spinal was placed in the lateral cubitus position. Right side was up. All areas of impingement were well-padded. Patient was prepped and draped normal sterile fashion. Skin incision made over the right lateral hip. IT band was split and a modified Lang approach was used anteriorly. The abductors and capsule were taken down anteriorly. Femoral neck fracture was identified. Femoral neck cut was made with a saw. The femoral head was removed and measured to be 48. The hip was then placed in a bag in order to get the appropriate trajectory for preparing the canal for the hemiarthroplasty. The supervisor transferring and boxing was used followed by the canal finder. And then a series of broaches were used up to 7 this was a Kindra system. The [place] hip was placed. 48 head was used and a -4 neck length. The head was placed onto the stem. And the hip was reduced felt to be stable in all ranges of motion and had good femoral neck length. Wounds were then irrigated and abductors were repaired along with the capsule. And then IT band and skin were closed in a layered fashion with 0 Vicryl 2-0 Vicryl and betsy. Sterile dressings were applied and patient was transferred to the PACU in stable condition.
--- NOTE | 2023-01-27 09:47 | PC.PHAR ---
GONE TO SURGERY?
--- NOTE | 2023-01-27 10:04 | ANE.PACU2 ---
Inpatient post-anesthesia follow up: Airway intact: Yes Vital signs: Temperature 97.6 F Pulse Rate 78 Respiratory Rate 18 Blood Pressure 91/51 Pulse Oximetry 97 Oxygen Delivery Me thod Room Air Oxygen Flow Rate Fraction of Inspir ed Oxygen Hydration adequate: Yes Nausea and vomiting: No Pain level: 1 Mental status: Baseline
[2023-01-27 10:26] LABS: Add Urine Microscopic? NO; Charge for UA Resulting for Rev
[2023-01-27 10:31] LABS: Bilirubin Urine Neg (Negative); Blood Urine Neg (Negative); Glucose Urine UA Norm (Normal); Ketones Urine Negative (Negative); Leukocyte Esterase Urine Negative (Negative); Nitrate Urine Negative (Negative); Protein Urine Neg (Negative); Urine Appearance Clear (CLEAR); Urine Color Yellow (Yellow); Urobilinogen Urine Norm (Negative); pH Urine 7 (5-7)
[2023-01-27] MEDS: oxyCODONE 5 mg IR Tab/Cap PO ×2 (12:34→18:43)
[2023-01-27] MEDS: buPROPion XL (24 HR) 300 mg Tablet PO (12:34)
[2023-01-27] MEDS: desvenlafaxine 50 mg Tablet 150 MG PO (13:51)
[2023-01-27] MEDS: ketorolac 30 mg/mL INJ 15 MG IVP (15:10)
[2023-01-27] MEDS: ALPRAZolam 0.5 mg Tablet 0.25 MG PO (15:12)
[2023-01-27] MEDS: atorvastatin 40 mg Tablet PO (21:59)
[2023-01-27] MEDS: enoxaparin 40 mg/0.4 mL Syringe SUBCUT (21:59)
[2023-01-27] MEDS: acetaminophen 325 mg Tablet 650 MG PO (21:59)
[2023-01-27] MEDS: quetiapine 25 mg Tablet 100 MG PO (21:59)
[2023-01-28] VITALS (11 sets, daily range): BP systolic 106–121; BP diastolic 45–58; PULSE 76–99; RESP 14–19; TEMP 36.4–36.9; O2SAT 96–100
[2023-01-28] MEDS: ketorolac 30 mg/mL INJ 15 MG IVP (00:06)
[2023-01-28] MEDS: ceFAZolin 2,000 MG in sodium chloride 0.9% (plus) 50 ML 100 MG IV ×2 (00:07→08:36)
[2023-01-28] MEDS: cyclobenzaprine 10 mg Tablet 5 MG PO ×3 (00:24→20:04)
[2023-01-28 04:39] LABS: Basophils % 0.4 %; Eosinophils # 0.2 10^3/uL (0.0-0.8); Eosinophils % 1.7 %; Hematocrit 33.5 % (36-47); Lymphocytes # 1.1 10^3/uL (0.8-4.8); Lymphocytes % 11.2 %; Mean Corpuscular Hemoglobin 29.7 pg (27-33); Mean Corpuscular Volume 95.7 fl (85-98); Mean Platelet Volume 9.8 fL (7.4-10.4); Monocytes % 10.1 %; Neutrophils % 76.4 %; Nucleated Red Blood Cells % 0 %; Platelet Count 283 10^3/cmm (157-399); Red Cell Distribution Width 13.5 % (12.1-15.1); White Blood Count 9.69 10^3/uL (3.29-11.43)
[2023-01-28 04:59] LABS: Anion Gap 9.3 (5-19); Blood Urea Nitrogen 6 mg/dL (8-23); Calcium 7.8 mg/dL (8.5-10.5); Carbon Dioxide 29 mmol/L (22-29); Chloride 108 mmol/L (98-107); Creatinine Clr Calc Pharmacy 66.5307; Glucose 131 mg/dL (65-115); Osmolality Calculated 293 mOsm/kg (285-295); Potassium 4.3 mmol/L (3.5-5.1); Sodium 142 mmol/L (136-145)
[2023-01-28] MEDS: pantoprazole 40 mg SDV IVP (05:30)
[2023-01-28] MEDS: oxyCODONE 5 mg IR Tab/Cap PO ×2 (05:43→15:39)
[2023-01-28] MEDS: buPROPion XL (24 HR) 300 mg Tablet PO (05:46)
[2023-01-28] MEDS: ALPRAZolam 0.5 mg Tablet 0.25 MG PO (05:46)
[2023-01-28] MEDS: dextrose 5%-sod chloride 0.9% 1,000 ML 100 ML IV ×2 (05:47→15:40)
--- NOTE | 2023-01-28 07:36 | PM.PN ---
Subjective Subjective: Patient resting comfortably. Denies any hip pain. Denies any shortness of breath or chest pain. Vitals/I&O/Wt Last Vital Signs Temp 98.4 F 01/28/23 03:21 Pulse 99 01/28/23 06:00 Resp 14 01/28/23 05:43 BP 106/58 01/28/23 03:21 Pulse Ox 100 01/28/23 05:43 O2 Del Method Nasal Cannula 01/28/23 03:21 O2 Flow Rate 2 01/27/23 13:08 01/27/23 01/28/23 01/28/23 22:59 06:59 14:59 Intake Total 530 / 1849.0 1001.667 / 2850.667 Output Total 1550 / 2600 1000 / 3600 Balance -1020 / -751.0 1.667 / -749.333 Weight last 48 hrs Weight 120 lb Physical Exam Narrative: Patient is alert and orient x3 has good general appearance normal normal affect. Hip incision is healing nicely. There is no signs of erythema or drainage no signs of infection. Good motor strength throughout both lower extremities. Fires in all motor groups. Skin is clear warm, feet are warm with good cap refill in all digits. Normal sensation to light touch. Calves are supple, no medial thigh tenderness, negative Homans' sign. No palpable edema peripherally. Urinary Catheter Management: Head: Cath Placed During This Visit: yes, but has since been removed by the nurse Reason for Continuing Indwelling Catheter: Decision to DC Catheter Urinary Catheter Date of Insertion: 01/27/23 Urinary Catheter Time of Insertion: 08:25 Date Urinary Catheter Removed: 01/28/23 Time Urinary Catheter Discontinued: 05:50 Data 01/28/23 04:16 01/28/23 04:16 A&P Assessment and plan (1) Displaced fracture of right femoral neck: Physical therapy to work with mobilization. Teach hip precautions. Dressing change as needed. Continue incentive spirometry for pulmonary toilet. Attestations Medical Necessity Statement*: Defer to medical team Coding Level of Care Code Acute Code for Chg Fwd Diagnoses Displaced fracture of right femoral neck S72.001A
[2023-01-28] MEDS: desvenlafaxine 50 mg Tablet 150 MG PO (08:36)
[2023-01-28] MEDS: HYDROmorphone 1 mg/mL INJ 1 mL IVP (08:41)
--- NOTE | 2023-01-28 11:02 | PM.PN ---
Subjective Subjective: Patient is stating that she would like to go home with a walker and a shower chair Continue PT No active pain Remove nasal cannula she is saturating well on 1 L nasal cannula Vitals/I&O/Wt Last Vital Signs Temp 98.2 F 01/28/23 07:41 Pulse 99 01/28/23 07:41 Resp 16 01/28/23 08:41 BP 121/53 01/28/23 07:41 Pulse Ox 98 01/28/23 07:41 O2 Del Method Nasal Cannula 01/28/23 07:41 O2 Flow Rate 2 01/27/23 13:08 01/27/23 01/28/23 01/28/23 22:59 06:59 14:59 Intake Total 530 / 1849.0 1001.667 / 2850.667 50 / 50 Output Total 1550 / 2600 1000 / 3600 Balance -1020 / -751.0 1.667 / -749.333 50 / 50 Weight last 48 hrs Weight 54.431 kg Physical Exam Narrative: Awake and alert Signs of dehydration present Nasal cannula 1 L Pleasant and cooperative GCS 15 Nonfocal neuro exam Urinary Catheter Management: Head: Cath Placed During This Visit: yes, but has since been removed by the nurse Reason for Continuing Indwelling Catheter: Decision to DC Catheter Urinary Catheter Date of Insertion: 01/27/23 Urinary Catheter Time of Insertion: 08:25 Date Urinary Catheter Removed: 01/28/23 Time Urinary Catheter Discontinued: 05:50 Data 01/28/23 04:16 01/28/23 04:16 A&P Assessment and plan (1) Displaced fracture of right femoral neck: (2) Closed fracture of right hip: (3) Fall at home: (4) Chronic idiopathic constipation: (5) Situational anxiety: Plan Postop day 1 No postoperative complication Physical therapy to be continued Patient wants likely will need a shower chair and a walker She is anticipating going home with home health services We will make further plan after today's PT evaluation I would not repeat labs for tomorrow I have removed her nasal cannula she is doing well on room air Hemodynamically stable Continue DVT prophylaxis opioids and senna as Attestations Medical Necessity Statement*: Likely discharge tomorrow Diagnoses Displaced fracture of right femoral neck S72.001A Closed fracture of right hip S72.001A Fall at home W19.XXXA; Y92.009 Chronic idiopathic constipation K59.04 Situational anxiety F41.8
[2023-01-28] MEDS: atorvastatin 40 mg Tablet PO (20:04)
[2023-01-28] MEDS: quetiapine 25 mg Tablet 100 MG PO (20:04)
[2023-01-28] MEDS: enoxaparin 40 mg/0.4 mL Syringe SUBCUT (20:04)
[2023-01-28] MEDS: acetaminophen 325 mg Tablet 650 MG PO (20:04)
[2023-01-29] VITALS (12 sets, daily range): BP systolic 97–141; BP diastolic 50–63; PULSE 68–109; RESP 15–23; TEMP 36.4–37.2; O2SAT 96–100
[2023-01-29] MEDS: dextrose 5%-sod chloride 0.9% 1,000 ML 100 ML IV (01:31)
[2023-01-29] MEDS: acetaminophen 325 mg Tablet 650 MG PO (05:05)
[2023-01-29] MEDS: pantoprazole 40 mg SDV IVP (05:09)
[2023-01-29] MEDS: desvenlafaxine 50 mg Tablet 150 MG PO (09:34)
[2023-01-29] MEDS: oxyCODONE 5 mg IR Tab/Cap PO ×2 (09:43→15:46)
--- NOTE | 2023-01-29 10:31 | PM.PN ---
Subjective Subjective: Patient requesting senior care placement Cannot work with PT because of pain Family at the bedside Vitals/I&O/Wt Last Vital Signs Temp 98.1 F 01/29/23 08:00 Pulse 74 01/29/23 08:00 Resp 16 01/29/23 09:43 BP 106/52 01/29/23 09:36 Pulse Ox 96 01/29/23 08:00 O2 Del Method Room Air 01/28/23 16:00 O2 Flow Rate 2 01/27/23 13:08 01/28/23 01/29/23 01/29/23 22:59 06:59 14:59 Intake Total 1120 / 1650 1105 / 2755 360 / 360 Balance 1120 / 1650 1105 / 2755 360 / 360 Physical Exam Narrative: GCS 15 Nonfocal neuro exam Significant muscle wasting Awake and alert No signs of focal deficit S1, S2 Currently on room air Pleasant and cooperative Urinary Catheter Management: Head: Cath Placed During This Visit: yes, but has since been removed by the nurse Reason for Continuing Indwelling Catheter: Decision to DC Catheter Urinary Catheter Date of Insertion: 01/27/23 Urinary Catheter Time of Insertion: 08:25 Date Urinary Catheter Removed: 01/28/23 Time Urinary Catheter Discontinued: 05:50 Data 01/28/23 04:16 01/28/23 04:16 A&P Assessment and plan (1) Displaced fracture of right femoral neck: (2) Closed fracture of right hip: (3) Fall at home: (4) Chronic idiopathic constipation: (5) Situational anxiety: (6) Insomnia: Plan Patient will need SNF/rehab Postop no complications Hip fracture status post intervention Head catheter has been removed Hemodynamically stable Patient was drowsy in the morning because of opioids Significant muscle mass loss, low BMI Patient is stating that she has not been eating very well for last few days she is not a big eater Willing to go to SNF/rehab fast food services manager updated Attestations Medical Necessity Statement*: Continue medical management Diagnoses Displaced fracture of right femoral neck S72.001A Closed fracture of right hip S72.001A Fall at home W19.XXXA; Y92.009 Chronic idiopathic constipation K59.04 Situational anxiety F41.8 Insomnia G47.00
--- NOTE | 2023-01-29 11:23 | XRR_ITS ---
PROCEDURE INFORMATION: Exam: XR Right Knee Exam date and time: 01/29/2023 11:39 AM Age: 63 years old Clinical indication: Pain and injury or trauma; Fall; Blunt trauma; Knee; Right; Additional info: Knee pain, fall at home TECHNIQUE: Imaging protocol: Radiologic exam of the right knee. Views: 1 or 2 views. COMPARISON: No relevant prior studies available. FINDINGS: Bones/joints: Normal. Soft tissues: Normal. XR/XR knee RT 1-2V [id number] IMPRESSION: No acute findings.
[2023-01-29 16:07] LABS: SARS Covid-2 Antigen negative (Negative)
[2023-01-29] MEDS: ketorolac 30 mg/mL INJ 15 MG IVP (20:04)
--- NOTE | 2023-01-29 20:07 | PC.NURSE ---
Patient asked that SCD be removed from right leg due to it causing her discomfort. SCD removed from right leg. SCD left on left leg.
[2023-01-29] MEDS: enoxaparin 40 mg/0.4 mL Syringe SUBCUT (20:41)
[2023-01-29] MEDS: atorvastatin 40 mg Tablet PO (20:41)
[2023-01-29] MEDS: ALPRAZolam 0.5 mg Tablet 0.25 MG PO (20:41)
[2023-01-29] MEDS: quetiapine 25 mg Tablet 50 MG PO (22:43)
[2023-01-30] VITALS (8 sets, daily range): BP systolic 107–140; BP diastolic 54–73; PULSE 84–103; RESP 18–20; TEMP 36.7–37; O2SAT 95–99
[2023-01-30] MEDS: pantoprazole 40 mg SDV IVP (04:31)
[2023-01-30] MEDS: oxyCODONE 5 mg IR Tab/Cap PO ×2 (05:59→11:58)
[2023-01-30] MEDS: ketorolac 30 mg/mL INJ 15 MG IVP (06:01)
[2023-01-30] MEDS: desvenlafaxine 50 mg Tablet 150 MG PO (08:29)
--- NOTE | 2023-01-30 10:58 | PM.DCS ---
Discharge Providers Date of Admission: 01/27/23 03:05 Date of Discharge: January 30, 2023 Attending Provider at Admission: Bladimir Gonzalez MD Attending Provider at Discharge: Vern Ayala MD Primary Care Provider: Angie Mcgovern APN Diagnoses at Discharge Discharge Diagnosis (1) Displaced fracture of right femoral neck: Status: Acute (2) Closed fracture of right hip: Status: Acute (3) Fall at home: Status: Acute (4) Chronic idiopathic constipation: Status: Chronic (5) Situational anxiety: Status: Chronic (6) Insomnia: Status: Chronic Reason for Visit Reason for Visit: fall, hip/thigh pain Hospital Course Hospital Course 63-year female who sustained a mechanical fall at home and presented with worsening of hip pain she was diagnosed with right hip fracture, status post right hip hemiarthroplasty 01/27/2023. No postoperative complications. Patient will require short-term rehab/SNF. She will get DVT prophylaxis for 30 days along bowel regimen. She is able to use a walker before her discharge. She is endorsing anorexia stating that she is not a big eater considering recent surgery and side effect of antidepressant she should discuss antidepressant options with her primary care physician, I am reluctant to add mirtazapine at this point which has sedation as side effect. Physical Exam Narrative: Awake and alert Walking with a walker GCS 15 S1, S2 Abdomen soft Currently doing well on room air Significant muscle wasting Protein calorie malnourishment Urinary Catheter Management: Head: Cath Placed During This Visit: yes, but has since been removed by the nurse Reason for Continuing Indwelling Catheter: Decision to DC Catheter Urinary Catheter Date of Insertion: 01/27/23 Urinary Catheter Time of Insertion: 08:25 Date Urinary Catheter Removed: 01/28/23 Time Urinary Catheter Discontinued: 05:50 Discharge Data Studies Completed and Pending Completed Studies During Hospitalization Category Date Time Status CXRP [XR chest 1V portable [id number]] Stat Exams 01/27/23 02:20 Completed XR hip RT 2-3V wo/w pel* [id number] Stat Exams 01/27/23 02:24 Completed XR knee RT 1-2V [id number] Routine Exams 01/29/23 11:23 Completed Radiology Impressions Chest X-Ray 01/27/23 02:20 IMPRESSION: No acute findings. Hip/Pelvis X-Ray 01/27/23 02:24 IMPRESSION: Right hip acute surgical fracture. Knee X-Ray 01/29/23 11:23 IMPRESSION: No acute findings. Laboratory Results WBC 9.69 10^3/uL (3.29-11.43) 01/28/23 04:16 RBC 3.50 10^6/uL (3.85-5.65) L 01/28/23 04:16 Hgb 10.40 g/dL (11.27-16.99) L 01/28/23 04:16 Hct 33.5 % (36-47) L 01/28/23 04:16 MCV 95.7 fl (85-98) 01/28/23 04:16 MCH 29.7 pg (27-33) 01/28/23 04:16 MCHC 31.0 g/dL (30-55) 01/28/23 04:16 RDW 13.5 % (12.1-15.1) 01/28/23 04:16 Plt Count 283 10^3/cmm (157-399) 01/28/23 04:16 MPV 9.8 fL (7.4-10.4) 01/28/23 04:16 Neut % (Auto) 76.4 % 01/28/23 04:16 Lymph % (Auto) 11.2 % 01/28/23 04:16 [place] % (Auto) 10.1 % 01/28/23 04:16 Eos % (Auto) 1.7 % 01/28/23 04:16 Baso % (Auto) 0.4 % 01/28/23 04:16 Neut # (Auto) 7.40 10^3/uL (1.8-7.7) 01/28/23 04:16 Lymph # (Auto) 1.1 10^3/uL (0.8-4.8) 01/28/23 04:16 [place] # (Auto) 1.0 10^3/uL (0.2-0.9) H 01/28/23 04:16 Eos # (Auto) 0.2 10^3/uL (0.0-0.8) 01/28/23 04:16 Baso # (Auto) 0.0 10^3/uL (0.0-0.1) 01/28/23 04:16 Nucleated RBC % (auto) 0 % 01/28/23 04:16 Nucleated RBCs # 0.0 /100WBC 01/28/23 04:16 PT 12.60 SECONDS (12.1-14.9) 01/27/23 02:37 INR 0.91 (0.8-1.2) 01/27/23 02:37 Sodium 142 mmol/L (136-145) 01/28/23 04:16 Potassium 4.3 mmol/L (3.5-5.1) 01/28/23 04:16 Chloride 108 mmol/L (98-107) H 01/28/23 04:16 Carbon Dioxide 29 mmol/L (22-29) 01/28/23 04:16 Anion Gap 9.3 (5-19) 01/28/23 04:16 BUN 6 mg/dL (8-23) L 01/28/23 04:16 Creatinine 0.8 mg/dL (0.5-0.9) 01/28/23 04:16 GFR Calculation 72.0 mL/min (90-130) L 01/28/23 04:16 Glucose 131 mg/dL (65-115) H 01/28/23 04:16 Calculated Osmolality 293 mOsm/kg (285-295) 01/28/23 04:16 Calcium 7.8 mg/dL (8.5-10.5) L 01/28/23 04:16 Total Bilirubin 0.2 mg/dL (0.15-1.2) 01/27/23 02:37 AST 24 U/L (0-32) 01/27/23 02:37 ALT 10 U/L (0-33) 01/27/23 02:37 Alkaline Phosphatase 130 U/L (35-105) H 01/27/23 02:37 Total Protein 6.9 g/dL (6.6-8.7) 01/27/23 02:37 Albumin 4.2 g/dL (3.5-5.2) 01/27/23 02:37 Globulin 2.7 g/dL (1.3-4.6) 01/27/23 02:37 TSH 6.62 uIU/mL (0.27-4.20) H 01/27/23 02:37 Urine Color Yellow (Yellow) 01/27/23 10:18 Urine Appearance Clear (CLEAR) 01/27/23 10:18 Urine pH 7 (5-7) 01/27/23 10:18 Ur Specific [place] 1.000 (1.005-1.030) L 01/27/23 10:18 Urine Protein Neg (Negative) 01/27/23 10:18 Urine Glucose (UA) Norm (Normal) 01/27/23 10:18 Urine Ketones Negative (Negative) 01/27/23 10:18 Urine Blood Neg (Negative) 01/27/23 10:18 Urine Nitrate Negative (Negative) 01/27/23 10:18 Urine Bilirubin Neg (Negative) 01/27/23 10:18 Urine Urobilinogen Norm mg/dL (Negative) 01/27/23 10:18 Ur Leukocyte Esterase Negative (Negative) 01/27/23 10:18 SARS-CoV-2 Ag (Rapid) negative (Negative) 01/29/23 15:38 Vitals Last Vital Signs Temp 98.0 F 01/30/23 08:00 Pulse 88 01/30/23 08:00 Resp 20 H 01/30/23 08:00 BP 107/56 01/30/23 08:00 Pulse Ox 97 01/30/23 08:00 O2 Del Method Room Air 01/30/23 08:00 O2 Flow Rate 2 01/29/23 20:00 Discharge Plan Discharge Patient Disposition: Xfer SNF Condition: Stable Prescriptions: New oxycodone-acetaminophen 5-325 mg tablet 1 tab PO DAILY PRN (Reason: pain) Qty: 10 0RF aspirin 325 mg tablet,delayed release (DR/EC) 325 mg PO BID Qty: 30 0RF sennosides-docusate sodium [Senna-S] 8.6-50 mg tablet 1 tab-cap PO DAILY Qty: 14 0RF Continued estradiol 1 mg tablet 1 mg PO .COMPLEX Qty: 45 12RF Rx Instructions: 1 mg PO Take 1.5 tablet daily to equal 1.5mg daily; desvenlafaxine succinate 100 mg tablet extended release 24 hr 150 mg PO DAILY quetiapine [Seroquel] 50 mg tablet 100 mg PO .at bedtime gabapentin 300 mg capsule 300 mg PO QID PRN (Reason: Pain) levothyroxine 75 mcg tablet 75 mcg PO DAILY alprazolam 0.5 mg tablet 0.25 - 0.5 mg PO BID PRN (Reason: Anxiety) eszopiclone 3 mg tablet 3 mg PO QPM diclofenac sodium 75 mg tablet,delayed release (DR/EC) 75 mg PO Q12H PRN (Reason: pain) Qty: 20 0RF Discontinued bupropion HCl 150 mg tablet extended release 24 hr 150 mg PO QAM Discharge Orders: Discharge Order (Routine); Ordered 01/30/23 Ordered By: Vern Ayala Other Ambulatory Orders: DME: Walker (Order) Location: None Selected Ordered By: Vern Ayala Referrals: [facility] [Outside] Los Gillespie DO [Physician] - 02/08/23 9:15 am Nam Lynch, MANDEEP-C [Nurse Practitioner] - Discharge Diet: Advance as tolerated Discharge Activity: Limit activity as instructed Patient Instructions: Opioid Safety Activity Restrictions/Additional Instructions: You are being discharged from the hospital today during which time you have been under the care of Dr Gillespie. You had a Right hip fracture. You were treated for this injury with a Troy Arthroplasty which is a partial hip replacement. You may resume you normal diet (including any special diets as directed by your primary doctor) as well as your home medications. You should follow up with you primary doctor if you have any questions regarding medication you took prior to your stay in the hospital. You may take your pain medication as prescribed. After the first few days, take your pain medication as needed. Do not drive or drink alcohol while taking your pain medication. Your injury may increase your risk of developing a blood clot,or DVT, in your arm or leg. This could potentially dislodge and travel to your lungs and become a life threatening condition called apulmonary embolus,or PE. You have been prescribed eliquis to be taken to prevent this. Frequent movement of the legs will also help prevent this from occurring. If you develop any new or worsening cough, chestpain, bloody sputum or shortness of breath, call 911 or go to the EmergencyRoom. Always keep your surgical incision/dressing clean and dry. If you experience increasing pain at your incision site, redness, swelling, increasing discharge, foul odors, or fevers (greater than 100.4), night sweats or chills you should call the office at the above number. If you feel this is an emergency you should be evaluated in the Emergency Department of a nearby hospital. Orthopedic Patient Instructions Summary: Weight Bearing: WBAT Activity: as tolerated. Diet: regular. Wound Care: Keep dressing clean and dry. Change as needed Anticoagulation: Lovenox Pain Medication: Take only as needed. Ice, rest and elevation will be of great benefit. Please plan to follow-up wlth Dr Gillespie in 2 weeks. You will need to call the clinic [phone] to schedule. Do not hesitate to call the office with any questions or concerns. Discharge Attestations Time Spent in Discharge Care*: greater than 30 min Quality Metrics Clinical Quality Measures [ No reported AMI, CVA or VTE this stay] Coding Level of Care Code Acute Code for Chg Fwd Diagnoses Displaced fracture of right femoral neck S72.001A Closed fracture of right hip S72.001A Fall at home W19.XXXA; Y92.009 Chronic idiopathic constipation K59.04 Situational anxiety F41.8 Insomnia G47.00
--- NOTE | 2023-01-30 11:44 | PC.SOCIAL ---
IMM Update pg 2 of IMM updated and reviewed w/ patient. Copy provided and copy dated, initialed and placed in chart.
== END 2023-01-30 13:08 | disposition skilled nursing facility (03) | DRG 522 ==
LOC: ER 03:05 → MEDSURG 03:05
PROVIDERS: Orthopaedic Surgery; Admitting Provider Family Medicine; Emergency Provider Emergency Medicine; PCP Nurse Practitioner Family; Visit Provider Internal Medicine
PROC: 0SRR0JZ Replacement of Right Hip Joint, Femoral Surface with Synthetic Substitute, Open Approach (ICD-10-PCS; principal; 2023-01-27 08:00)
DX: S72.011A Unspecified intracapsular fracture of right femur, initial encounter for closed fracture (principal); Z68.1 Body mass index [BMI] 19.9 or less, adult; W01.0XXA Fall on same level from slipping, tripping and stumbling without subsequent striking against object, initial encounter; Z79.890 Hormone replacement therapy; F41.8 Other specified anxiety disorders; G47.00 Insomnia, unspecified; E78.5 Hyperlipidemia, unspecified; F32.9 Major depressive disorder, single episode, unspecified; M79.7 Fibromyalgia; Z79.82 Long term (current) use of aspirin; M16.11 Unilateral primary osteoarthritis, right hip; K59.04 Chronic idiopathic constipation; R63.0 Anorexia
CPT/HCPCS: 36415; 51702; 71045; 73502; 73560; 80048; 80053; 81003; 84443; 85025; 85610; 87426; 93005; 96372; 96374; 96375; 97110; 97116; 97163; 97167; 97530; 97535; 99285; C1776; C9113; J0690; J1170; J1650; J1885; J2250; J2371; J2405; J2704; J3010; J7030; J7042

== ENCOUNTER → 2023-02-08 10:57 | Outpatient (BNVA) | payer MEDICARE, MEDICAID, SELFPAY | PROVIDERS: PCP Nurse Practitioner Family; Visit Provider Physician Assistant | DX: Z47.89 Encounter for other orthopedic aftercare (principal); Z96.649 Presence of unspecified artificial hip joint | CPT/HCPCS: 73502; 99024 ==

== ENCOUNTER → 2023-03-08 14:06 | Outpatient (BNVA) | payer MEDICAID, SELFPAY | PROVIDERS: PCP Nurse Practitioner Family; Visit Provider Physician Assistant | DX: Z47.89 Encounter for other orthopedic aftercare (principal); Z96.641 Presence of right artificial hip joint | CPT/HCPCS: 73502; 99024; 99213 ==

== ENCOUNTER → 2023-04-26 13:28 | Outpatient (BNVA) | payer MEDICARE, SELFPAY | PROVIDERS: PCP Nurse Practitioner Family; Visit Provider Physician Assistant | DX: Z47.89 Encounter for other orthopedic aftercare (principal); Z96.649 Presence of unspecified artificial hip joint; M53.3 Sacrococcygeal disorders, not elsewhere classified | CPT/HCPCS: 73502; 99024 ==

== ENCOUNTER 2024-01-20 14:46 | Emergency (ER) | payer MEDICARE, MEDICAID, SELFPAY ==
[2024-01-20 14:53] VITALS: BP 174/71; PULSE 94; RESP 16; TEMP 36.7; O2SAT 98
--- NOTE | 2024-01-20 15:03 | XRR_ITS ---
PROCEDURE INFORMATION: Exam: XR Right Foot Exam date and time: 01/20/2024 3:33 PM Age: 64 years old Clinical indication: Right; Patient HX: Lateral RT foot pain after hearing pop TECHNIQUE: Imaging protocol: Radiologic exam of the right foot. Views: 3 or more views. COMPARISON: No relevant prior studies available. FINDINGS: Bones/joints: There is a nondisplaced fracture of the distal diaphysis of the 5th metatarsal. The foot is otherwise normal. Soft tissues: Normal. XR/XR foot RT min 3V* [id number] IMPRESSION: Nondisplaced distal 5th metatarsal diaphyseal fracture
--- NOTE | 2024-01-20 15:51 | W.ED.EXTPRO ---
HPI - Extremity Problem General: Chief complaint: Extremity Injury, Lower Stated complaint: Right foot injury Time Seen by Provider: 01/20/24 15:39 History of Present Illness: Patient complains of right foot pain. She said she started last night once her foot was asleep when she got up and tried to walk on it and all of a sudden she felt a crack and pop and then started bruising and swelling. She iced it all through the night last night but when she got up this morning it was worse. Patient is able to put weight on the inside of the foot not the outside of the foot. Related Data Home Medications Medication Instructions Recorded Confirmed gabapentin 300 mg capsule 300 mg PO QID PRN Pain 09/30/19 04/26/23 desvenlafaxine succinate 100 mg 150 mg PO DAILY 12/09/20 04/26/23 tablet,extended release 24 hr quetiapine 50 mg tablet (Seroquel) 100 mg PO .at bedtime 01/16/22 04/26/23 alprazolam 0.5 mg tablet 0.25 - 0.5 mg PO BID PRN Anxiety 01/27/23 04/26/23 eszopiclone 3 mg tablet 3 mg PO QPM 01/27/23 04/26/23 levothyroxine 75 mcg tablet 75 mcg PO DAILY 01/27/23 04/26/23 Previous Rx's Medication Instructions Recorded estradiol 1 mg tablet 1 mg PO .COMPLEX #45 tabs 03/29/20 diclofenac sodium 75 mg 75 mg PO Q12H PRN pain #20 tabs 02/18/22 tablet,delayed release aspirin 325 mg tablet,delayed 325 mg PO BID #30 tabs 01/30/23 release oxycodone-acetaminophen 5 mg-325 1 tab PO DAILY PRN pain #10 tabs 01/30/23 mg tablet sennosides 8.6 mg-docusate sodium 1 tab-cap PO DAILY #14 tabs 01/30/23 50 mg tablet (Senna-S) hydrocodone 5 mg-acetaminophen 325 1 tab PO Q6H PRN Right hip 03/08/23 mg tablet fracture 5 days #20 tabs prednisone 20 mg tablet 20 mg PO DAILY pain #15 tabs 04/26/23 hydrocodone 5 mg-acetaminophen 325 1 tab PO Q6H PRN pain #14 tabs 01/20/24 mg tablet Allergies Allergy/AdvReac Type Severity Reaction Status Date / Time estrogens, conjugated Allergy rash Verified 01/20/24 14:58 [From Premarin] Review of Systems General: Reports: 10 or more systems reviewed and unremarkable except in HPI and below PFSH ED PFSH: Medical History Displaced fracture of right femoral neck Closed fracture of right hip Fall at home Chronic idiopathic constipation Hyperlipidemia, mixed Situational anxiety Depression Insomnia Fibromyalgia Surgical History Status post hip hemiarthroplasty Right December 2022 Fracture of right elbow June 2022 with surgical repair Status post colonoscopy (09/30/19) repeat 10 years H/O sinus surgery History of hysterectomy with BSO History of hip surgery Left hip screw repair age 48 Family History Family/Other Cancer son-colon cancer Father Cancer colon Other COPD (chronic obstructive pulmonary disease) Hypertension Social History Smoking and tobacco/nicotine status: never used tobacco/nicotine Second hand smoke exposure: No Alcohol intake: never Substance/Drug Use: never Adopted: No Caregiver/support person: No Lives independently: Yes Household members: spouse Housing: House Marital status: service: No Current occupational status: disabled Do you think of yourself as: Straight/Heterosexual Current gender identity: Female Physical Exam Const: COMMON NORMALS: no acute distress, average body habitus, patient oriented x3, no limitations, healthy appearing, alert and well nourished HENMT: COMMON NORMALS: normocephalic, atraumatic, hearing grossly normal bilaterally, Normal external nose present and moist oral mucous membranes HEAD & SCALP: normocephalic and atraumatic NOSE: Normal external nose present Neck/C-Spine: COMMON NORMALS: no JVD Chest: COMMONS NORMALS: normal inspection of the chest and normal palpation of entire chest wall Resp: COMMON NORMALS: normal respiratory effort, No retractions, No use of accessory muscles and clear to auscultation bilaterally AUSCULTATION: clear to auscultation bilaterally Cardio: COMMON NORMALS: no JVD, regular rate, regular rhythm, S1 normal heart sound present, S2 normal heart sound present, No gallops present (Cardio), No clicks present (Cardio) and No murmurs present (Cardio) RATE: regular rate RHYTHM: regular rhythm HEART SOUNDS: S1 normal heart sound present and S2 normal heart sound present GI: COMMON NORMALS: Normal to inspection, nondistended, normoactive bowel sounds present, Soft to palpation, non-tender, No hepatosplenomegaly present and no masses PALPATION: Yes Soft to palpation and Yes No hepatosplenomegaly present Extremity: NARRATIVE EXTREMITY EXAM: Right foot swelling and ecchymosis to the lateral and dorsal surfaces of the foot. Neuro: COMMON NORMALS: patient oriented x3 SENSORIUM/ORIENTATION: Yes alert Course Vital Signs: Vital signs: Vital Signs Temperature 98.1 F 01/20/24 14:53 Pulse Rate 94 01/20/24 14:53 Respiratory Rate 16 01/20/24 14:53 Blood Pressure 174/71 01/20/24 14:53 Pulse Oximetry 98 01/20/24 14:53 Oxygen Delivery Me thod Room Air 01/20/24 14:53 MDM - Extremity (Nontraumatic) Medical Decision Making X-ray showed nondisplaced fifth metatarsal fracture, patient was placed in a posterior splint with crutches, patient given [place] and followed up with podiatry Lab Data Radiology Impressions Foot X-Ray 01/20/24 15:03 IMPRESSION: Nondisplaced distal 5th metatarsal diaphyseal fracture All radiology interpretation(s) finalized by discharge Discharge Plan Discharge Patient Disposition: Home Clinical Impression: Metatarsal bone fracture Qualifiers: Encounter type: initial encounter Metatarsal bone: fifth Fracture type: closed Fracture alignment: displaced Laterality: right Qualified Code(s): S92.351A - Displaced fracture of fifth metatarsal bone, right foot, initial encounter for closed fracture Condition: Stable Prescriptions: New hydrocodone-acetaminophen 5-325 mg tablet 1 tab PO Q6H PRN (Reason: pain) Qty: 14 0RF No Action estradiol 1 mg tablet 1 mg PO .COMPLEX Qty: 45 12RF Rx Instructions: 1 mg PO Take 1.5 tablet daily to equal 1.5mg daily; desvenlafaxine succinate 100 mg tablet extended release 24 hr 150 mg PO DAILY quetiapine [Seroquel] 50 mg tablet 100 mg PO .at bedtime prednisone 20 mg tablet 20 mg PO DAILY Qty: 15 0RF Rx Instructions: 60mg for 3 days, 40mg for 2 days, 20mg for 2 days. hydrocodone-acetaminophen 5-325 mg tablet 1 tab PO Q6H PRN (Reason: Right hip fracture) 5 Days Qty: 20 0RF gabapentin 300 mg capsule 300 mg PO QID PRN (Reason: Pain) levothyroxine 75 mcg tablet 75 mcg PO DAILY alprazolam 0.5 mg tablet 0.25 - 0.5 mg PO BID PRN (Reason: Anxiety) eszopiclone 3 mg tablet 3 mg PO QPM aspirin 325 mg tablet,delayed release (DR/EC) 325 mg PO BID Qty: 30 0RF Senna-S 8.6-50 mg tablet 1 tab-cap PO DAILY Qty: 14 0RF oxycodone-acetaminophen 5-325 mg tablet 1 tab PO DAILY PRN (Reason: pain) Qty: 10 0RF diclofenac sodium 75 mg tablet,delayed release (DR/EC) 75 mg PO Q12H PRN (Reason: pain) Qty: 20 0RF Discharge Orders: Discharge ED (Routine); Ordered 01/20/24 Ordered By: Marquez Cartwright Referrals: Angie Mcgovern APN [Primary Care Provider] - 1 week Patient Instructions: Opioid Safety, Pain Management, Foot Fracture in Adults (ED) Activity Restrictions/Additional Instructions: You have what is called 1/5 metatarsal fracture in your right foot. Please wear your splint and use crutches until seen by the inspector integrated circuits. A prescription for hydrocodone was called into your pharmacy please pick them up and take them as directed. Please follow-up with your family practice physician in 7 to 10 days for further evaluation and treatment if needed. Case management has been consulted they should be calling you within the next business day to arrange consult for podiatry. Coding Level of Care Code ED Chemical Test Engineer for Isidro Nathan
[2024-01-20] MEDS: ketorolac 60 mg/2 mL INJ IM (17:27)
[2024-01-20 17:44] VITALS: BP 170/70; PULSE 70; O2SAT 99
--- NOTE | 2024-01-21 08:50 | DCPLANNER ---
messaged podiatry for er f/u
== END 2024-01-20 17:46 | disposition home or self-care (01) ==
PROVIDERS: Emergency Provider Emergency Medicine; PCP Nurse Practitioner Family
DX: S92.351A Displaced fracture of fifth metatarsal bone, right foot, initial encounter for closed fracture (principal); E78.2 Mixed hyperlipidemia; X50.9XXA Other and unspecified overexertion or strenuous movements or postures, initial encounter
CPT/HCPCS: 73630; 96372; 99284; J1885

== ENCOUNTER → 2024-01-30 09:30 | Outpatient (BNVA) | payer MEDICARE, SELFPAY | PROVIDERS: PCP Nurse Practitioner Family; Visit Provider Podiatrist Foot & Ankle Surgery | DX: S92.351A Displaced fracture of fifth metatarsal bone, right foot, initial encounter for closed fracture (principal); X58.XXXA Exposure to other specified factors, initial encounter | CPT/HCPCS: 73630 ==

== ENCOUNTER 2024-01-30 10:53 | Outpatient (CLI) | payer MEDICARE, SELFPAY | END 2024-01-30 10:54 | disposition home or self-care (01) | LOC: SPT 11:34 | PROVIDERS: PCP Nurse Practitioner Family; Visit Provider Podiatrist Foot & Ankle Surgery | DX: Z46.89 Encounter for fitting and adjustment of other specified devices (principal); S92.351D Displaced fracture of fifth metatarsal bone, right foot, subsequent encounter for fracture with routine healing; S99.921D Unspecified injury of right foot, subsequent encounter; X58.XXXD Exposure to other specified factors, subsequent encounter | CPT/HCPCS: 97760; L4361 ==

== ENCOUNTER → 2024-02-20 11:08 | Outpatient (BNVA) | payer MEDICARE, SELFPAY | PROVIDERS: PCP Nurse Practitioner Family; Visit Provider Podiatrist Foot & Ankle Surgery | DX: S92.354D Nondisplaced fracture of fifth metatarsal bone, right foot, subsequent encounter for fracture with routine healing; W19.XXXD Unspecified fall, subsequent encounter | CPT/HCPCS: 73630; 99213 ==

== ENCOUNTER → 2024-05-08 11:22 | Outpatient (BNVA) | payer MEDICARE, SELFPAY | PROVIDERS: PCP Nurse Practitioner Family; Visit Provider Nurse Practitioner | DX: E55.9 Vitamin D deficiency, unspecified (principal); E03.8 Other specified hypothyroidism | CPT/HCPCS: 80053; 80061; 82306; 82607; 84443; 85025 ==

== ENCOUNTER 2024-05-21 13:00 | Outpatient (CLI) | payer MEDICARE, SELFPAY ==
--- NOTE | 2024-05-21 13:17 | MM_ITS ---
WS: [id number] BILATERAL 3D TOMOSYNTHESIS DIGITAL SCREENING MAMMOGRAPHY WITH CAD CLINICAL INFORMATION: SCREEN HISTORY: Screening mammogram. No current complaints. COMPARISON: 2020 TECHNIQUE: Bilateral CC and MLO views. FINDINGS: Scattered fibroglandular densities bilaterally. No suspicious focal mass, asymmetry, calcifications, or architectural distortion. No evidence of malignancy. A few incidental punctate calcifications. MM/MM scr tomosynthesis [id number] IMPRESSION: DENSITY: There are scattered areas of fibroglandular density. BI-RADS: 2 - Benign. FOLLOW UP: 1 Year Follow-up Recommend return to annual screening mammography.
--- NOTE | 2024-05-21 13:30 | XR_ITS ---
WS: [id number] SCREENING DEXA SCAN [employer] CLINICAL INFORMATION: Z78.0 - Asymptomatic menopausal state COMPARISON: None. FINDINGS: The L1-L4 bone mineral density measures 1.073 g/cm2. This corresponds to a T score score of -0.9 and Z score of 0.8. Left forearm bone mineral density measures 0.66. This corresponds to a T score of -2.4 and Z score of 0.9. XR/XR DEXA axial skeleton* [id number] IMPRESSION: Normal bone mineralization lumbar spine. Osteopenia LEFT forearm approaching os teoporosis.
== END 2024-05-21 13:13 | disposition home or self-care (01) ==
PROVIDERS: PCP Nurse Practitioner; Visit Provider Nurse Practitioner Family
DX: Z12.31 Encounter for screening mammogram for malignant neoplasm of breast (principal); Z78.0 Asymptomatic menopausal state; R92.323 Mammographic fibroglandular density, bilateral breasts; R92.1 Mammographic calcification found on diagnostic imaging of breast; M85.832 Other specified disorders of bone density and structure, left forearm
CPT/HCPCS: 77063; 77067; 77080

== ENCOUNTER → 2024-06-03 13:59 | Outpatient (BNVA) | payer MEDICARE, SELFPAY | PROVIDERS: PCP Nurse Practitioner; Visit Provider Orthopaedic Surgery | DX: M54.50 Low back pain, unspecified (principal); M79.605 Pain in left leg; M54.9 Dorsalgia, unspecified | CPT/HCPCS: 72110; 99214 ==

== ENCOUNTER 2024-06-12 13:55 | Outpatient (CLI) | payer MEDICARE, MEDICAID, SELFPAY ==
--- NOTE | 2024-06-12 14:00 | MR_ITS ---
WS: [id number] MRI LUMBAR SPINE NONCONTRAST HISTORY: Back Pain COMPARISON: None available. TECHNIQUE: Sagittal and axial multisequence imaging is submitted. Normal lumbar alignment with no compression fractures or marrow edema. Disc space narrowing and mild desiccation, most significant at L5-S1. No acute fracture. Conus terminates normally at L1-2 disc level. L1-L2: Mild annular disc bulging and facet arthritis. No high-grade stenosis. L2-L3: Mild annular disc bulging with mild ligamentum flavum and facet arthritis. Mild disc encroachment upon the subarticular recesses. No stenosis. L3-L4: Mild annular disc bulging with disc encroachment upon the ventral thecal sac and subarticular recesses. Previously seen small RIGHT foraminal disc protrusion has resolved. Moderate ligamentum flavum and facet arthritis. Mild bilateral subarticular recess encroachment upon the traversing L4 nerve roots. L4-L5: Mild annular disc bulging, asymmetric to the LEFT. Disc encroachment upon the ventral thecal sac and subarticular recesses. New LEFT foraminal disc protrusion. No contact on the exiting nerve roots. Moderate central and bilateral subarticular recess stenosis. Encroachment upon the traversing L5 nerve roots. Mild progression of central stenosis. L5-S1: Marked osteophytic ridging with annular disc bulging. Central disc osteophyte has progressed since the prior study. There is greater contact on the S1 nerve roots by disc and osteophyte disease. Severe subarticular recess stenosis and moderate foraminal stenosis. Paravertebral soft tissues are normal. Small LEFT renal cyst measures 6 mm. MR/MR lumbar spine wo con* [id number] IMPRESSION: 1. L4-5: Moderate central and bilateral subarticular recess encroachment by di sc and osteophyte disease. Encroachment upon the traversing L5 nerve roots. Mil d progression of central stenosis since the prior study. 2. L5-S1: Marked osteophytic ridging and disc bulging. Central disc osteophyte progressed since the prior study. Greater disc osteophyte contact on the S1 ne rve roots. Severe subarticular recess stenosis and moderate foraminal stenosis. 3. L3-4: Moderate ligamentum flavum and facet arthritis. Mild bilateral subart icular recess encroachment upon the traversing L4 nerve roots. 4. L2-3: Very mild disc encroachment upon the subarticular recesses.
== END 2024-06-12 13:56 | disposition home or self-care (01) ==
PROVIDERS: PCP Nurse Practitioner; Visit Provider Orthopaedic Surgery
DX: M48.061 Spinal stenosis, lumbar region without neurogenic claudication (principal); R93.7 Abnormal findings on diagnostic imaging of other parts of musculoskeletal system; M51.379 Other intervertebral disc degeneration, lumbosacral region without mention of lumbar back pain or lower extremity pain; M48.07 Spinal stenosis, lumbosacral region; M25.78 Osteophyte, vertebrae; M47.896 Other spondylosis, lumbar region; N28.1 Cyst of kidney, acquired
CPT/HCPCS: 72148

== ENCOUNTER → 2024-06-26 07:57 | Outpatient (BNVA) | payer MEDICARE, SELFPAY | PROVIDERS: PCP Nurse Practitioner; Visit Provider Orthopaedic Surgery | DX: Z01.818 Encounter for other preprocedural examination (principal); M48.062 Spinal stenosis, lumbar region with neurogenic claudication | CPT/HCPCS: 36415; 80053; 81001; 85025; 99214 ==

== ENCOUNTER → 2024-06-27 10:24 | Outpatient (BNVA) | payer MEDICARE, SELFPAY | PROVIDERS: PCP Nurse Practitioner; Visit Provider Family Medicine | DX: Z01.818 Encounter for other preprocedural examination (principal) | CPT/HCPCS: 93005 ==

== ENCOUNTER 2024-07-16 11:40 | Day surgery (SDC) | payer MEDICARE, MEDICAID, SELFPAY ==
[2024-07-16] VITALS (13 sets, daily range): BP systolic 119–140; BP diastolic 59–93; PULSE 86–96; RESP 12–20; TEMP 36.1–36.2; O2SAT 92–98; BMI 20.5
--- NOTE | 2024-07-16 | XR_ITS ---
WS: [id number] Lumbar spine, C-arm fluoroscopy views, 07/16/2024 Clinical Data: [facility] IMAGES Comparison: Lumbar spine, 06/03/2024 Findings: Dr. Gillespie performed a lumbar decompression. XR/XR lumbar spine 2-3V* [id number] Impression: Lumbar decompression.
[2024-07-16] MEDS: sodium chloride 0.9% 1,000 ML 30 ML IV (12:00)
--- NOTE | 2024-07-16 12:36 | ANES.PREANE2 ---
Pre-Anesthetic Assessment Height/Weight: Height 1.73 m Weight 61.235 kg O2 Del Method Room Air 07/16/24 12:01 Operation Date: 07/16/24 13:20 Proposed Procedures p Lumbar Decompression(Not Applicable) - Los Gillespie DO Familial anesthetic complications: Refractory pain after surgery to repair broken arm Was Beta Elliott taken within 24 hours: N/A Was Clonidine taken within 24 hours: N/A Last intake: Intake Last Liquid Date 07/16/24 Last Liquid Time 07:00 Last Solid Date 07/15/24 Last Solid Time 22:00 Social No alcohol and No tobacco Exam alert, oriented x 3, clear to auscultation bilaterally and regular rate & rhythm Airway Mallampati: Class II Dentition: full Metabolic Thyroid Disease Anesthetic Plan ASA status: 2 Anesthesia: General Risk of > 500 ml blood loss (7ml/kg in children): No Medications/Allergies Home Medications ?Medication ?Instructions ?Recorded ?Confirmed ?Last Taken ?Type alprazolam 0.5 mg tablet 0.5 mg PO BID PRN anxiety #60 tabs 05/08/24 07/15/24 07/14/24 Rx cholecalciferol (vitamin D3) 125 125 mcg PO DAILY #30 caps 05/11/24 07/15/24 Unknown Rx mcg (5,000 unit) capsule eszopiclone 3 mg tablet (Lunesta) 3 mg PO BEDTIME #30 tabs 05/18/24 07/15/24 07/15/24 Rx calcium 500 mg (as 1 tab PO .2 times day #60 tabs 06/04/24 07/15/24 Unknown Rx carbonate)-vitamin D3 15 mcg (600 unit) tablet (Os-[place]ave[place] 500 + D3) desvenlafaxine succinate 100 mg 100 mg PO DAILY #30 tabs 06/04/24 07/15/24 07/15/24 Rx tablet,extended release 24 hr (Pristiq) ergocalciferol (vitamin D2) 1,250 1,250 mcg PO .weekly #4 caps 06/04/24 07/15/24 07/09/24 Rx mcg (50,000 unit) capsule estradiol 2 mg tablet 2 mg PO DAILY #30 tabs 06/04/24 07/15/24 07/15/24 Rx ibandronate 150 mg tablet 150 mg PO .monthly #1 tab 02/09/2107/15/24 07/08/24 Rx levothyroxine 75 mcg tablet 75 mcg PO DAILY #90 tabs 06/04/24 07/15/24 07/15/24 Rx quetiapine 200 mg tablet (Seroquel) 200 mg PO .at bedtime #30 tabs 06/04/24 07/15/24 07/15/24 Rx Allergies Allergy/AdvReac Type Severity Reaction Status Date / Time estrogens, conjugated (From Allergy rash Verified 06/27/24 10:43 Premarin) bupropion (From Wellbutrin) AdvReac Severe ADR-Agitate Verified 06/27/24 10:43 d [facility] Anesthesia Medical History Insomnia Adult onset hypothyroidism Displaced fracture of right femoral neck Closed fracture of right hip Fall at home Chronic idiopathic constipation Hyperlipidemia, mixed Situational anxiety Depression Fibromyalgia Surgical History Status post hip hemiarthroplasty Right December 2022 Fracture of right elbow June 2022 with surgical repair Status post colonoscopy (09/30/19) repeat 10 years H/O sinus surgery History of hysterectomy with BSO History of hip surgery Left hip screw repair age 48 Family History Family/Other Cancer son-colon cancer Father Cancer colon Other COPD (chronic obstructive pulmonary disease) Hypertension Social History Smoking and tobacco/nicotine status: never used tobacco/nicotine Second hand smoke exposure: No Alcohol intake: never Substance/Drug Use: never Adopted: No Caregiver/support person: No Lives independently: Yes Household members: spouse Housing: House Marital status: service: No Current occupational status: disabled Do you think of yourself as: Straight/Heterosexual Current gender identity: Female Data Anesthesia Cardiac Studies: No Data to Display
--- NOTE | 2024-07-16 14:25 | W.PM.OPSUD ---
Surgery/Procedure H&P Update DATE OF PROCEDURE: July 16, 2024 DATE H&P PERFORMED: 06/26/24 H&P UPDATE INFORMATION: I have reviewed H&P completed within last 30 days, I have examined patient prior to procedure and No changes to prior documentation PREOP DIAGNOSIS: Lumbar stenosis neurogenic claudication PLANNED PROCEDURE: Operation Date: 07/16/24 13:20 Proposed Procedures p Lumbar Decompression(Not Applicable) - Los Gillespie DO
[2024-07-16] MEDS: ceFAZolin 2,000 mg SDV 2000 MG IVP (15:21)
[2024-07-16] MEDS: lidocaine-epi 1% 20 mL INJ 10 ML INJECTION (15:57)
--- NOTE | 2024-07-16 16:40 | PM.OP ---
Operative Report Date of procedure: July 16, 2024 Pre-op diagnosis: Lumbar stenosis with neurogenic claudication Post-op diagnosis: same Procedure done: 1. L4-5 laminectomy with partial facetectomy 2. L5-S1 laminectomy with partial facetectomy Surgeon: Los Gillespie DO Estimated blood loss (mL): 10 Procedure: 1. L4-5 laminectomy with partial facetectomy 2. L5-S1 laminectomy with partial facetectomy Patient is brought to the operative suite. After undergoing anesthesia they are placed in the prone position. All areas of impingement are well padded. Patient is then prepped and draped in the normal sterile fashion. A skin incision is made over the L4/5 level. This is confirmed under c-arm guidance. A series of dilators are passed and the tubular retractor is docked on the L4 lamina. A bovie is used to clear the soft tissue off the lamina and the L 4/5 facet joint. A high speed eddie is then used to perform the laminectomy and take down the medial aspect of the L 4/5 facet joint. A kerrison rongeure was then used to take down the remaining lamina and smooth the edge of the laminectomy up to the point where the ligamentum flavum attaches. Attention was then brought to the medial aspect of the facet joint. The remaining medial aspect of the superior and inferior aspect of the facet joint were taken down with the kerrison from the pedicle of L4 to L 5. The facet joint had significant hypertrophy. Attention was then brought to the Ligamentum Flavum. The ligament was taken down from the lamina of L4 to L5 and out medially to the remaining facet joint. The ligament was thick. The dura was then exposed. The dura was in good repair. The L4 nerve was then traced with a curette out the L4/5 foramen and found to be adequately decompressed. The L5 nerve was traced with a curette around the L5 pedicle. The lateral recess was opened with a kerrison helping to further decompress the L5 nerve. Wound is then irrigated copiously with saline and surgiflo is used to stop any bleeding. The tubular retractor is removed . A skin incision is made over the L5/S1 level. This is confirmed under c-arm guidance. A series of dilators are passed and the tubular retractor is docked on the L5 lamina. A bovie is used to clear the soft tissue off the lamina and the L 5/S1 facet joint. A high speed eddie is then used to perform the laminectomy and take down the medial aspect of the L 5/S1 facet joint. A kerrison rongeure was then used to take down the remaining lamina and smooth the edge of the laminectomy up to the point where the ligamentum flavum attaches. Attention was then brought to the medial aspect of the facet joint. The remaining medial aspect of the superior and inferior aspect of the facet joint were taken down with the kerrison from the pedicle of L5 to S1. The facet joint had significant hypertrophy. Attention was then brought to the Ligamentum Flavum. The ligament was taken down from the lamina of L5 to S1 and out medially to the remaining facet joint. The ligament was thick. The dura was then exposed. The dura was in good repair. The L5 nerve was then traced with a curette out the L5/S1 foramen and found to be adequately decompressed. The S1 nerve was traced with a curette around the S1 pedicle. The lateral recess was opened with a kerrison helping to further decompress the S1 nerve. Wound is then irrigated copiously with saline and surgiflo is used to stop any bleeding. The tubular retractor is removed and the wound is closed with vicryl and monocryl suture. Glue is then used to protect the wound. A sterile dressing is then placed. Patient was then placed in the supine position and transferred to the PACU in stable condition.
[2024-07-16] MEDS: fentaNYL 50 mcg/mL INJ 2mL IVP ×2 (17:05→17:15)
[2024-07-16] MEDS: HYDROcodone-acetaminophen 5-325 mg Tablet 2 TAB PO (18:07)
== END 2024-07-16 18:24 | disposition home or self-care (01) ==
PROVIDERS: PCP Nurse Practitioner; Visit Provider Orthopaedic Surgery
PROC: (CPT 63005; principal; 2024-07-16 13:10)
DX: M48.062 Spinal stenosis, lumbar region with neurogenic claudication (principal); E03.9 Hypothyroidism, unspecified; E78.2 Mixed hyperlipidemia
CPT/HCPCS: 63047; 63048; 72100; 76000; J0330; J0690; J1100; J2250; J2405; J2704; J3010; J3490; J7030; J9999

== ENCOUNTER → 2024-07-22 10:48 | Outpatient (BNVA) | payer MEDICARE, MEDICAID, SELFPAY | PROVIDERS: PCP Nurse Practitioner; Visit Provider Orthopaedic Surgery | DX: M79.605 Pain in left leg (principal); M54.50 Low back pain, unspecified | CPT/HCPCS: 99024 ==

== ENCOUNTER → 2024-08-05 13:56 | Outpatient (BNVA) | payer MEDICARE, SELFPAY | PROVIDERS: PCP Nurse Practitioner; Visit Provider Orthopaedic Surgery | DX: Z98.890 Other specified postprocedural states (principal) | CPT/HCPCS: 99024 ==

== ENCOUNTER → 2024-08-26 14:51 | Outpatient (BNVA) | payer MEDICARE, SELFPAY | PROVIDERS: PCP Nurse Practitioner; Visit Provider Orthopaedic Surgery | DX: Z98.890 Other specified postprocedural states (principal) | CPT/HCPCS: 99024 ==

== ENCOUNTER → 2024-08-28 12:12 | Outpatient (BNVA) | payer MEDICARE, SELFPAY | PROVIDERS: PCP Nurse Practitioner; Visit Provider Nurse Practitioner | DX: E03.8 Other specified hypothyroidism (principal); E55.9 Vitamin D deficiency, unspecified | CPT/HCPCS: 80053; 82306; 84443 ==

== ENCOUNTER → 2024-10-09 08:44 | Outpatient (BNVA) | payer MEDICARE, SELFPAY | PROVIDERS: PCP Nurse Practitioner; Visit Provider Orthopaedic Surgery | DX: Z98.890 Other specified postprocedural states (principal) | CPT/HCPCS: 99024 ==

== ENCOUNTER → 2024-11-19 12:37 | Outpatient (BNVA) | payer MEDICARE, SELFPAY | PROVIDERS: PCP Nurse Practitioner; Visit Provider Nurse Practitioner | DX: F41.8 Other specified anxiety disorders (principal); E03.8 Other specified hypothyroidism | CPT/HCPCS: 80053; 82607; 84443; 85025 ==